=== PATIENT | female | born 1935 | race Caucasian/White ===

== ENCOUNTER 2017-12-30 11:58 | Emergency (ER) | payer MEDICARE, BC ==
[2017-12-30 13:14] LABS: Bilirubin Negative (Negative); Blood, Urine Negative (Negative); Clarity Clear (Clear); Glucose, Urine (Dipstick) Negative (Negative); Leukocyte Negative (Negative); Nitrite Negative (Negative); Protein, Urine (Dipstick) Negative (Neg-Trace); Urobilinogen 0.2 mg/dL (0.2-1.0)
[2017-12-30 13:17] LABS: #Basophils 0.1 thou/uL (0.0-0.2); #Lymphocytes 1.2 thou/uL (1.20-3.40); #Monocytes 0.5 thou/uL (0.11-0.59); #Neutrophils 6.3 thou/uL (1.40-6.50); %Basophils 0.9 % (0.0-1.0); %Eosinophils 0.5 % (0.0-10.0); %Monocytes 5.6 % (0.0-10.0); Hemoglobin 13.7 g/dL (12.0-16.0); Mean Corpuscular HGB CONC 33.4 g/dL (32.0-36.0); Mean Corpuscular Hemoglobin 30.1 pg (27.0-31.0); Mean Corpuscular Volume 90.4 fl (81.0-99.0); Mean Platelet Volume 5.9 fL (7.4-10.4); Platelet Count 375 thou/uL (130-400); RBC Distribution Width 12.7 % (11.5-14.5); Red Blood Cell (RBC) Count 4.54 mill/uL (4.20-5.40); White Blood Cell (WBC) Count 8.1 thou/uL (4.8-10.8)
[2017-12-30 13:30] LABS: ALT (SGPT) 17 U/L (8-55); AST (SGOT) 22 U/L (5-34); Albumin 4.4 g/dL (3.4-4.8); Alkaline Phosphatase 65 U/L (40-150); Anion Gap 16 mmol/L (10-20); BUN (Urea Nitrogen) 9 mg/dL (9.8-20.1); Bilirubin, Total 0.5 mg/dL (0.2-1.2); Calc. Creatinine Clearance 0 mL/min (70-130); Calcium 9.8 mg/dL (7.8-10.44); Carbon Dioxide 28 mmol/L (23-31); Chloride 98 mmol/L (98-107); Estimated GFR-MDRD 77; Globulin 3.2 g/dL (2.4-3.5); Glucose 108 mg/dL (83-110); Potassium 4.1 mmol/L (3.5-5.1); Protein, Total 7.6 g/dL (6.0-8.3); Sodium 138 mmol/L (136-145)
== END 2017-12-30 14:02 | disposition home or self-care (01) ==
LOC: SCSER 11:58
DX: I10 Essential (primary) hypertension (principal); E78.5 Hyperlipidemia, unspecified; J44.9 Chronic obstructive pulmonary disease, unspecified; F32.9 Major depressive disorder, single episode, unspecified; Z87.891 Personal history of nicotine dependence; Z79.899 Other long term (current) drug therapy
CPT/HCPCS: 80053; 81003; 85025; 99283

== ENCOUNTER 2018-01-09 09:25 | Inpatient (IN) | payer MEDICARE, BC ==
[2018-01-09 10:31] LABS: #Lymphocytes 0.9 thou/uL (1.20-3.40); #Monocytes 0.6 thou/uL (0.11-0.59); #Neutrophils 8.9 thou/uL (1.40-6.50); %Basophils 0.3 % (0.0-1.0); %Eosinophils 0.2 % (0.0-10.0); %Lymphocytes 8.4 % (21.0-51.0); %Neutrophils 85.1 % (42.0-75.0); Hemoglobin 13.3 g/dL (12.0-16.0); Mean Corpuscular HGB CONC 33.4 g/dL (32.0-36.0); Mean Corpuscular Hemoglobin 31.7 pg (27.0-31.0); Mean Corpuscular Volume 94.7 fl (81.0-99.0); Mean Platelet Volume 6.7 fL (7.4-10.4); Platelet Count 322 thou/uL (130-400); RBC Distribution Width 13.2 % (11.5-14.5); Red Blood Cell (RBC) Count 4.19 mill/uL (4.20-5.40); White Blood Cell (WBC) Count 10.5 thou/uL (4.8-10.8)
--- NOTE | 2018-01-09 10:49 | RAD ---
SINGLE VIEW OF THE CHEST: COMPARISON: 03/10/13. HISTORY: Burning chest pain. FINDINGS: A single view of the chest shows a normal-size cardiomediastinal silhouette with atherosclerotic calc ifications in the aorta. There is no evidence of consolidation, mass, or pleural effusion. Degenera tive changes are seen in the spine. IMPRESSION: 1. No evidence of acute cardiopulmonary disease. 2. Atherosclerotic disease. POS: [facility]
[2018-01-09 10:54] LABS: ALT (SGPT) 17 U/L (8-55); AST (SGOT) 20 U/L (5-34); Albumin 4.1 g/dL (3.4-4.8); Alkaline Phosphatase 58 U/L (40-150); Anion Gap 12 mmol/L (10-20); BUN (Urea Nitrogen) 13 mg/dL (9.8-20.1); Bilirubin, Total 0.4 mg/dL (0.2-1.2); CK (CPK) 84 U/L (29-168); Calc. Creatinine Clearance 0 mL/min (70-130); Calcium 9.2 mg/dL (7.8-10.44); Carbon Dioxide 29 mmol/L (23-31); Chloride 90 mmol/L (98-107); Estimated GFR-MDRD 81; Globulin 2.7 g/dL (2.4-3.5); Glucose 138 mg/dL (83-110); Lipase 33 U/L (8-78); Protein, Total 6.8 g/dL (6.0-8.3); Sodium 127 mmol/L (136-145)
[2018-01-09 10:57] LABS: CKMB 3.1 ng/mL (0-6.6); Troponin I Less than 0.010 ng/mL (< 0.028)
[2018-01-09] MEDS ORDERED: Mag-Al 1200 mg/1200 mg/30 ML UDCUP ONE (11:11)
[2018-01-09] MEDS ORDERED: Lidocaine Viscous Sol 2% 15 ml UD Cup ONE (11:11)
[2018-01-09] MEDS ORDERED: Famotidine 20 MG TAB ONE (11:27)
[2018-01-09] MEDS ORDERED: Famotidine 20 MG TAB PO SCH (11:30)
[2018-01-09] MEDS ORDERED: Pantoprazole 40 MG VIAL ONE (12:59)
[2018-01-09 13:58] LABS: Troponin I 0.017 ng/mL (< 0.028)
[2018-01-09] MEDS ORDERED: Ondansetron ODT 4 MG TAB SL PRN (15:29)
[2018-01-09] MEDS ORDERED: Sodium Chloride 0.9% 1,000 ML IV SCH (15:29)
[2018-01-09] MEDS ORDERED: Ondansetron HCl/PF 4 MG/2 ML Vial IVP PRN (15:29)
[2018-01-09] MEDS ORDERED: Acetaminophen 325 MG TAB PO PRN (15:29)
[2018-01-09 16:01] VITALS: BMI 21.0
[2018-01-09] MEDS ORDERED: cloNIDine 0.1 MG TAB PO PRN ×2 (16:27→17:06)
[2018-01-09] MEDS ORDERED: PROVENTIL INHALER 6.7 G (200 INHALATIONS) INH PRN (16:27)
[2018-01-09 16:44] LABS: Troponin I 0.018 ng/mL (< 0.028)
--- NOTE | 2018-01-09 18:10 | HP ---
PRIMARY CARE PHYSICIAN: Darrell Scales M.D. CHIEF COMPLAINT: Epigastric pain. HISTORY OF PRESENT ILLNESS: This is an 82-year-old female patient of Dr. Scales with a history of hypertension, hyperlipidemia, COPD, hypothyroidism, uncontrolled gastroesophageal reflux disease presents to the emergency department with worsening epigastric pain and reflux symptoms. The patient states she has had these symptoms that had been getting worse over the past 1-2 weeks. She was seen by Dr. Scales little over a week ago who increased her omeprazole from 20 mg to 40 mg. She has had worsening symptoms since then and presented to the emergency department for evaluation. Of note, she does state that after eating [place] meatloaf with lots of tomato sauce, her symptoms did get worse. She denies chest pain, denies shortness of breath, denies radiation of her pain, denies nausea and vomiting, denies black tarry stools. She had no relief in the ER with p.o. Pepcid. PAST MEDICAL HISTORY: Hypertension, hyperlipidemia, COPD followed by Dr. Montes and Dr. Page, hypothyroidism, gastroesophageal reflux disease, followed by Dr. Jon, home oxygen and history of depression. PAST SURGICAL HISTORY: Hysterectomy in 1962, exploratory laparotomy in 1981, breast biopsy in 1988, vaginal surgery for ovarian cyst in 1994, she reports colonoscopy in 2010 and 2015. She had EGD in [address] Jon, was admitted for partial small-bowel obstruction in 2012. MEDICATIONS: Include citalopram 10 mg daily, omeprazole 40 mg daily, levothyroxine 50 mcg daily, Breo-Ellipta inhaler 1 puff daily, ProAir p.r.n., Spiriva 18 mcg once daily, amlodipine 5 mg daily, melatonin 3 mg at bedtime, losartan 50 mg b.i.d., vitamin C 1000 mg daily, clonidine 0.1 mg p.r.n. systolic over 180, multivitamin daily, calcium and vitamin D daily, and Zetia 10 mg daily. ALLERGIES: CEPHALEXIN, HYDROCHLOROTHIAZIDE, LEVOFLOXACIN, and SYMBICORT. FAMILY HISTORY: Mother and father . Mother with colon cancer. Siblings with diabetes and kidney disease. SOCIAL HISTORY: Former smoker, last smoked over 10 years ago. She is retired. She is , retired 12th grade. REVIEW OF SYSTEMS: As per the history of present illness. General: She denies any recent fevers, chills or recent illness. HEENT: She denies headache , visual or hearing changes. Cardiac: She denies chest pain, shortness of breath. Pulmonary: Chronic cough, chronic shortness of breath, occasional wheezing followed by Dr. Montes and Dr. Page. Gastrointestinal: Positive for chronic gastroesophageal reflux disease. No melena, no hematochezia. Positive epigastric tenderness, no nausea, vomiting, no diarrhea. Genitourinary: Recent urinary tract infection for which she was drinking lots of water. Neurologic: No weakness, seizures, syncope. PHYSICAL EXAMINATION: VITAL SIGNS: Temperature 97.8, pulse of 80, respirations 18, blood pressure 170 /97, pulse ox is 99% on 3 liters. GENERAL: She is awake and alert, in no acute distress. Speech is clear. Mucosa is moist. NECK: Supple, no JVD, adenopathy or bruits. HEART: Regular rate and rhythm with a 2/6 systolic ejection murmur. LUNGS: Decreased breath sounds throughout, but no wheezes, rales or rhonchi. ABDOMEN: Positive bowel sounds in all 4 quadrants. Some epigastric tenderness. No rebound or guarding. EXTREMITIES: No clubbing, cyanosis or edema. 2+ peripheral pulses bilaterally. NEUROLOGIC: Cranial nerves II-XII are grossly intact. LABORATORY AND X-RAY FINDINGS: White blood cell count 10.5 thousand, hemoglobin and hematocrit 13.3 and 39.7, platelets 322. Sodium 127, potassium 4.0, chloride 90, CO2 of 29, BUN and creatinine 13.69 with a GFR of 81. Serum glucose of 138, calcium of 9.2. Magnesium 1.9. Liver enzymes are normal with AST and ALT being normal. Total bilirubin was normal. Cardiac enzymes are negative x2. Albumin of 4.1, lipase of 33. Chest x-ray showed no active disease. Positive for atherosclerotic disease. ASSESSMENT AND PLAN: This is an 82-year-old female patient with multiple medical problems including hypertension, hyperlipidemia, chronic obstructive pulmonary disease, and uncontrolled gastroesophageal reflux disease, now with epigastric pain and burning consistent with gastroesophageal reflux disease. 1. We will discontinue proton pump inhibitor and start IV Pepcid twice a day. We will start Carafate for more immediate relief with her meals. Will check an abdominal US to rule out gallbladder disease 2. Chronic obstructive pulmonary disease. We will continue her inhalers, monitor her pulse oximetry. 3. Hypertension. We will continue losartan, amlodipine and p.r.n. clonidine. 4. Hyponatremia, likely secondary to excessive water intake to treat her recent bladder infection. We will fluid restrict and recheck in the morning. 5. We will continue rule out myocardial infarction protocol, but no signs of cardiac origin of her symptoms. 6. Code status: The patient desires DNR. MTDD
[2018-01-09] MEDS: Sucralfate 1 GM TAB PO SCH ×2 (18:23→21:10)
[2018-01-09] MEDS: Ipratropium Bromide 2.5 ml Neb NEB SCH (19:55)
[2018-01-09] MEDS ORDERED: Famotidine/PF 20 mg/2ml Vial SLOW IVP SCH (21:00)
[2018-01-09] MEDS: Melatonin 3 MG TAB PO SCH (21:08)
[2018-01-09] MEDS: Losartan 25 MG TAB PO SCH (21:08)
[2018-01-09] MEDS: Ezetimibe 10 MG TAB PO SCH (21:09)
[2018-01-10] MEDS: Ipratropium Bromide 2.5 ml Neb NEB SCH ×3 (01:50→15:31)
[2018-01-10 05:47] LABS: #Eosinphils 0.2 thou/uL (0.0-0.7); #Lymphocytes 1.4 thou/uL (1.20-3.40); #Monocytes 0.6 thou/uL (0.11-0.59); %Basophils 0.5 % (0.0-1.0); %Eosinophils 2.9 % (0.0-10.0); %Lymphocytes 26.6 % (21.0-51.0); %Monocytes 11.4 % (0.0-10.0); %Neutrophils 58.6 % (42.0-75.0); Hemoglobin 11.1 g/dL (12.0-16.0); Mean Corpuscular HGB CONC 32.1 g/dL (32.0-36.0); Mean Corpuscular Volume 96.6 fl (81.0-99.0); Mean Platelet Volume 6.6 fL (7.4-10.4); Platelet Count 291 thou/uL (130-400); RBC Distribution Width 13.2 % (11.5-14.5); Red Blood Cell (RBC) Count 3.59 mill/uL (4.20-5.40); White Blood Cell (WBC) Count 5.2 thou/uL (4.8-10.8)
[2018-01-10 06:17] LABS: ALT (SGPT) 14 U/L (8-55); AST (SGOT) 16 U/L (5-34); Albumin 3.3 g/dL (3.4-4.8); Alkaline Phosphatase 45 U/L (40-150); Anion Gap 8 mmol/L (10-20); BUN (Urea Nitrogen) 14 mg/dL (9.8-20.1); Bilirubin, Total 0.4 mg/dL (0.2-1.2); Calc. Creatinine Clearance 45 mL/min (70-130); Calcium 8.8 mg/dL (7.8-10.44); Carbon Dioxide 31 mmol/L (23-31); Chloride 96 mmol/L (98-107); Estimated GFR-MDRD 74; Globulin 2.1 g/dL (2.4-3.5); Glucose 87 mg/dL (83-110); Potassium 4.5 mmol/L (3.5-5.1); Protein, Total 5.4 g/dL (6.0-8.3); Sodium 130 mmol/L (136-145)
[2018-01-10] MEDS ORDERED: FLUTICASONE INH SCH (07:00)
[2018-01-10] MEDS ORDERED: VILANTEROL INH SCH (07:00)
[2018-01-10] MEDS: Levothyroxine Sodium 50 MCG TAB PO SCH (07:04)
[2018-01-10] MEDS: Sucralfate 1 GM TAB PO SCH ×4 (07:45→20:38)
--- NOTE | 2018-01-10 08:49 | ULT ---
ULTRASOUND ABDOMEN COMPLETE: DATE: 01/10/18. TIME: 6:35 a.m. HISTORY: An 82-year-old female with epigastric abdominal pain. FINDINGS: Liver: Normal. Gallbladder: A large number of tiny mobile gallstones. Normal wall thickness. No pericholecystic ed celina or sonographic Willson's sign. Common duct: 5 mm. Spleen: No splenomegaly. Pancreas: Nonspecific sonographic appearance. Kidneys: A few small bilateral renal cysts. No hydronephrosis. Abdominal aorta: No aneurysm. Inferior vena cava: Unremarkable. IMPRESSION: Positive for cholelithiasis without sonographic evidence of acute cholecystitis or biliary obstructio n. JN R POS: OFF
[2018-01-10] MEDS: Losartan 25 MG TAB PO SCH ×2 (08:50→20:38)
[2018-01-10] MEDS: Citalopram 10 MG TAB PO SCH (08:52)
[2018-01-10] MEDS: Amlodipine 10 MG TAB PO SCH (08:53)
[2018-01-10] MEDS: Famotidine 20 MG TAB PO SCH ×2 (08:54→20:37)
[2018-01-10] MEDS: Multivit, Therapeutic 1 TAB PO SCH (08:54)
[2018-01-10] MEDS: Calcium Carbonate + Vit D 1 TAB PO SCH (08:54)
[2018-01-10] MEDS: Ascorbic Acid 500 mg Chewable Tablet PO SCH (08:55)
[2018-01-10] MEDS ORDERED: Amlodipine 5 MG TAB PO SCH (09:00)
--- NOTE | 2018-01-10 09:12 | PRG ---
DATE OF SERVICE: 01/10/2018 HISTORY OF PRESENT ILLNESS: The patient has been tolerating fluid restriction. The nursing staff bobo s only been bringing the patient Gatorades in addition to this 1500 mL restriction. She has had a hi story of hypernatremia prior, but this was felt to be secondary to her diuretic. The patient has had an increased fluid intake following a UTI in the last month and has been eating significantly less s econdary to her GERD. She reports that with current medications her acid reflux is in improved contr ol. She still reports she feels a generalized sense of weakness. She is on p.r.n. oxygen at home fo r her COPD and respiratory therapy is reporting a desire to titrate down from 3 liters nasal cannula at this point in time. The patient had no additional complaints, still reports anxiety and depressiv e symptoms regarding the living situation and long-term outlook, not interested currently in assisted living per the patient's desire. PHYSICAL EXAMINATION: VITAL SIGNS: Temperature of 98.2, blood pressure of 189/87, pulse of 76, respiratory rate of 18, oxy gen saturation 99% on 3 liters nasal cannula. GENERAL: The patient is alert and oriented in no acute distress. HEENT: Head is normocephalic, atraumatic. Extraocular movements are intact. Nasal cannula is in pl jena. Oral mucosa is moist. NECK: Supple. HEART: Regular rate and rhythm. No murmurs are auscultated. LUNGS: With poor air movement, but no rubs, wheezes, rhonchi, or rales bilaterally. ABDOMEN: Soft, nontender. Mild epigastric tenderness. EXTREMITIES: Lower extremities without cyanosis or edema. NEUROLOGIC: The patient is alert and oriented x3, no focal deficits. Speech is normal. The patient reports depressed mood and anxiety. LABORATORY DATA: Sodium improved from 127 to 130, potassium of 4.5, chloride of 96, creatinine 0.75, blood glucose of 87, calcium of 8.8, total bilirubin of 0.4, AST of 16, ALT of 14. Troponins x3 are negative. Albumin of 3.3. Lipase of 33 on admission. Abdomen ultrasound performed, however, not r ead yet. Chest x-ray was clear. ASSESSMENT AND PLAN: Hyponatremia, gastroesophageal reflux disease with esophagitis, hypoalbuminemia, chronic obstructive pulmonary disease, hypertension, chest pain, rule out myocardial infarction, depression. Continuing on fluid restriction, following up on urine osmolarity and sodiu m. We will trend sodium while the patient is inpatient, currently improving with fluid restriction. Gastroesophageal reflux disease with esophagitis, the patient improved with H2 olimpia, proton pump inhibitor, and Carafate. We will continue this for this point in time, no sources of blood noted. T he patient does have signs of anemia of chronic disease following volume normalization. Hypoalbumine roldan, the patient is normally taking Ensure protein shakes once a day. Has had poor appetite secondar y to gastroesophageal reflux disease as above for the last month or so. On an outpatient basis, we w ill increase protein shakes from daily to b.i.d. to t.i.d. Chronic obstructive pulmonary disease, co ntinuing p.r.n. oxygen and breathing treatments. The patient appears currently medically stable, has p.r.n. oxygen at home. Hypertension remains somewhat elevated, initiated p.r.n. clonidine on an out patient basis, likely will increase the patient's amlodipine, continue the patient's losartan. Chest pain, rule out myocardial infarction. Troponins x3 negative. The patient without chest pain this a .m. does not appear to be cardiac in nature. No further workup at this time unless chest pain return s. Depression, the patient was initiated on SSRI on an outpatient basis, low dose; however, she has only been on this medication for approximately one week. Currently, continued on citalopram, not a l ikely cause of hyponatremia, but we will continue to follow. We will continue to discuss with the jarrett jerez her long-term outcomes versus assisted living versus renovating home per her wishes, but at thi s point in time, the patient is likely appropriate for discharge home. We will have the patient up w ith the walking program today.
[2018-01-10] MEDS ORDERED: Ipratropium Bromide 2.5 ml Neb NEB PRN (14:05)
[2018-01-10 14:13] LABS: Osmolality, Urine 344 mOsm/kg (300-900)
[2018-01-10 14:23] LABS: Sodium, Urine 81 mmol/L (Not Available)
[2018-01-10] MEDS: Melatonin 3 MG TAB PO SCH (20:38)
[2018-01-10] MEDS: Ezetimibe 10 MG TAB PO SCH (20:39)
[2018-01-11] MEDS: Levothyroxine Sodium 50 MCG TAB PO SCH (05:39)
[2018-01-11 05:50] LABS: Anion Gap 6 mmol/L (10-20); BUN (Urea Nitrogen) 12 mg/dL (9.8-20.1); Calc. Creatinine Clearance 51 mL/min (70-130); Calcium 8.9 mg/dL (7.8-10.44); Carbon Dioxide 36 mmol/L (23-31); Chloride 92 mmol/L (98-107); Estimated GFR-MDRD 86; Glucose 89 mg/dL (83-110); Potassium 3.9 mmol/L (3.5-5.1); Sodium 130 mmol/L (136-145)
[2018-01-11] MEDS ORDERED: Sodium Chloride 0.9% 10 ML ONE (08:15)
[2018-01-11] MEDS: Ascorbic Acid 500 mg Chewable Tablet PO SCH (09:42)
[2018-01-11] MEDS: Sucralfate 1 GM TAB PO SCH ×4 (09:42→20:28)
[2018-01-11] MEDS: Amlodipine 10 MG TAB PO SCH (09:43)
[2018-01-11] MEDS: Famotidine 20 MG TAB PO SCH (09:43)
[2018-01-11] MEDS: Citalopram 10 MG TAB PO SCH (09:44)
[2018-01-11] MEDS: Calcium Carbonate + Vit D 1 TAB PO SCH (09:45)
[2018-01-11] MEDS: Losartan 25 MG TAB PO SCH ×2 (09:45→20:29)
[2018-01-11] MEDS: Multivit, Therapeutic 1 TAB PO SCH (09:45)
[2018-01-11 14:27] LABS: Anion Gap 9 mmol/L (10-20); BUN (Urea Nitrogen) 10 mg/dL (9.8-20.1); Calc. Creatinine Clearance 53 mL/min (70-130); Calcium 9.4 mg/dL (7.8-10.44); Carbon Dioxide 32 mmol/L (23-31); Chloride 92 mmol/L (98-107); Estimated GFR-MDRD 89; Glucose 110 mg/dL (83-110); Sodium 129 mmol/L (136-145)
--- NOTE | 2018-01-11 14:41 | PRG ---
DATE OF SERVICE: 01/11/2018 HISTORY OF PRESENT ILLNESS: The patient states she has no new complaints. Nursing staff reports she wanting to take her Spiriva rather than scheduled breathing treatments. The patient verbalized unde rstanding regarding fluid restrictions at this point in time following up additional studies for hypo natremia. The patient still reports weakness. She refused to walk with walking program yesterday, b ut states she will do so. Today as she did not know that they would use a walker with her as request ed. The patient states that her acid reflux symptoms are controlled. She reports she had a spike in blood pressure this a.m. without any symptoms. PHYSICAL EXAMINATION: VITAL SIGNS: This a.m., temperature 98.3, pulse of 67, respiratory rate of 16, oxygen saturation 100 % on 3 liters nasal cannula, blood pressure 140/80. GENERAL: The patient is alert and oriented, no acute distress. HEENT: Normocephalic, atraumatic. Extraocular muscles are intact. Oral mucosa is moist. NECK: Supple. Nasal cannula in place. HEART: Regular rate and rhythm. No murmurs auscultated. LUNGS: Clear to auscultation bilaterally. No wheezes, rhonchi or rales. ABDOMEN: Soft, nontender, positive bowel sounds throughout. EXTREMITIES: Lower extremities without cyanosis or edema. NEUROLOGIC: The patient is alert and oriented x3, no focal deficits. Speech is normal. Urine osmolality of 344. Urine sodium 81. Serum sodium of 130. TSH of 1.99. Stool guaiac is pendi ng. ASSESSMENT AND PLAN: Gastroesophageal reflux disease with esophagitis, hyponatremia, chronic obstruc tive pulmonary disease, hypertension. Continuing fluid restriction this point in time. The patient receiving jittery products. Sodium has increased 3 points and then leveled off. We will follow up cortisol level and serum osmolality for possible causes of low adrenal production versus hypothyroidism; however, thyroid is in acceptable ra nges. She has reported to be semi-compliant with current dose of thyroid may increase slightly and m onitor on outpatient basis. We will order physical therapy consultation and the patient does not wal k with a walking program to ensure the patient's safety returning home. I have ordered protein shake s for low albumin and found a decreased appetite, slightly better blood pressure profile with amlodip ine remains labile as p.r.n. clonidine ordered. No reported symptoms with spike in blood pressure th is a.m. to 180s. The patient has improved without use of clonidine this a.m. The patient is tolerat ing Pepcid, Protonix, and Carafate at this point in time. I plan to discharge on these if the patien t produces stool. We will check for blood, which has not done so. Likely discharge tomorrow followi ng laboratory studies and if she is able to walk.
[2018-01-11] MEDS ORDERED: Tolvaptan 15 MG TAB PO SCH (18:00)
[2018-01-11] MEDS: Ezetimibe 10 MG TAB PO SCH (20:27)
[2018-01-11] MEDS: Melatonin 3 MG TAB PO SCH (20:28)
[2018-01-12] MEDS: Levothyroxine Sodium 50 MCG TAB PO SCH (06:04)
[2018-01-12 06:29] LABS: ALT (SGPT) 13 U/L (8-55); AST (SGOT) 15 U/L (5-34); Albumin 3.7 g/dL (3.4-4.8); Alkaline Phosphatase 52 U/L (40-150); Anion Gap 10 mmol/L (10-20); BUN (Urea Nitrogen) 15 mg/dL (9.8-20.1); Bilirubin, Total 0.3 mg/dL (0.2-1.2); Calc. Creatinine Clearance 48 mL/min (70-130); Calcium 9.5 mg/dL (7.8-10.44); Carbon Dioxide 37 mmol/L (23-31); Chloride 95 mmol/L (98-107); Estimated GFR-MDRD 80; Globulin 2.5 g/dL (2.4-3.5); Glucose 108 mg/dL (83-110); Potassium 4.5 mmol/L (3.5-5.1); Protein, Total 6.2 g/dL (6.0-8.3); Sodium 137 mmol/L (136-145)
[2018-01-12] MEDS ORDERED: SPIRIVA INH SCH (07:00)
[2018-01-12] MEDS: Sucralfate 1 GM TAB PO SCH ×3 (08:04→16:52)
[2018-01-12] MEDS ORDERED: Tolvaptan 15 MG TAB PO SCH (09:00)
[2018-01-12] MEDS ORDERED: Famotidine 20 MG TAB PO SCH (09:00)
[2018-01-12] MEDS: Losartan 25 MG TAB PO SCH (09:54)
[2018-01-12] MEDS: Multivit, Therapeutic 1 TAB PO SCH (09:54)
[2018-01-12] MEDS: Amlodipine 10 MG TAB PO SCH (09:56)
[2018-01-12] MEDS: Ascorbic Acid 500 mg Chewable Tablet PO SCH (09:58)
[2018-01-12] MEDS: Calcium Carbonate + Vit D 1 TAB PO SCH (09:58)
[2018-01-12] MEDS: Citalopram 10 MG TAB PO SCH (09:58)
[2018-01-12 15:33] VITALS: BP 143/73; TEMP 98.8
--- NOTE | 2018-01-13 13:51 | DIS ---
DATE OF ADMISSION: 01/09/2018 DATE OF DISCHARGE: 01/12/2018 PRIMARY CARE PHYSICIAN: Myself, Dr. Darrell Scales. ADMITTING PHYSICIAN: Clint Montoya D.O. DIAGNOSES: Include hyponatremia; gastroesophageal reflux disease with esophagitis; hypoalbuminemia; chronic obstructive pulmonary disease; hypertension; chest pain, rule out myocardial infarction; recu rrent depression; and syndrome of inappropriate antidiuretic hormone secretion. CHIEF COMPLAINT: Chest pain and weakness. PRESENTING HISTORY OF PRESENT ILLNESS: The patient presented to the emergency department secondary t o chest pain. She reports this feels much like her acid reflux. Troponins x3 were negative. The pa solitario had a history of hyponatremia, on prior hydrochlorothiazide; however, was discontinued, found t o have sodiums ranging down to 127. The patient did not improve with fluid restriction. 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 The patient was treated with a dose of tolva ptan with resolution of her hyponatremia. The patient was on increased Carafate and PPI as addition to H2 olimpia for chest pain control. The patient has been resistant to start depression medications ; however, is compliant for less than one week on an outpatient basis prior to her admission. She re ports great anxiety about her health condition, does not want to go to assisted living, but know she cannot remain living by herself for much longer. When discussed, she had a constricted right pupil g iven findings of SIADH. The patient declined MRI of the brain and states that she if has a brain evy or, she does not want to know about it and does not want to do anything about it. Her code status bobo s been DNR/DNI since admission. She states she will follow up with Dr. Pringle on an outpatient basi s regarding her vision. She denies any visual changes, double vision, still remains overall weak, wa s using protein supplementation shakes once a day, verbalized understanding about increasing that to help with hyperalbuminemia as well as energy. DISCHARGE MEDICATIONS: Increase amlodipine to 10 mg, continue p.r.n. clonidine 0.1 mg. NEW MEDICATIONS: Pepcid 20 mg b.i.d., Carafate 1 gram q.i.d., tolvaptan 15 mg daily. Continue other home medications, otherwise. DISCHARGE CONDITION: Good. DISCHARGE DIET: Heart healthy. FOLLOWUP: Follow up with myself, Dr. Darrell Scales, on an outpatient basis in 7 to 10 days. We wi ll recheck sodium at that point in time and blood pressure. Follow up with Dr. Pringle for repeat ex am.
--- NOTE | 2018-01-15 18:04 | EKG ---
Test Reason : Blood Pressure : / mmHG Vent. Rate : 085 BPM Atrial Rate : 085 BPM P-R Int : 144 ms QRS Dur : 138 ms QT Int : 388 ms P-R-T Axes : 079 -46 026 degrees QTc Int : 461 ms Normal sinus rhythm Left axis deviation Right bundle branch block Minimal voltage criteria for LVH, may be normal variant Septal infarct , age undetermined Abnormal ECG Confirmed by VICENTE CARROLL, BAKARI ([id number]), film editor YURI BATES ([id number]) on 01/15/2018 6:03:30 PM Referred By: Confirmed By:BAKARI ZHANG MD
== END 2018-01-12 17:06 | disposition home health service (06) | DRG 392 ==
LOC: ERS 09:25 → 2NO 15:36 → ONC 01-11 16:05
PROVIDERS: ADMIT Family Medicine; ATTEND Family Medicine
DX: K21.0 Gastro-esophageal reflux disease with esophagitis (principal); E88.09 Other disorders of plasma-protein metabolism, not elsewhere classified; Z99.81 Dependence on supplemental oxygen; E22.2 Syndrome of inappropriate secretion of antidiuretic hormone; J44.9 Chronic obstructive pulmonary disease, unspecified; D63.8 Anemia in other chronic diseases classified elsewhere; I10 Essential (primary) hypertension; E78.5 Hyperlipidemia, unspecified; E03.9 Hypothyroidism, unspecified; F32.9 Major depressive disorder, single episode, unspecified; Z79.51 Long term (current) use of inhaled steroids; Z88.8 Allergy status to other drugs, medicaments and biological substances; Z87.891 Personal history of nicotine dependence; Z66 Do not resuscitate; F41.9 Anxiety disorder, unspecified
CPT/HCPCS: 36415; 71045; 76700; 80048; 80053; 82150; 82274; 82533; 82550; 82553; 83690; 83735; 83930; 83935; 84300; 84443; 84484; 85025; 93005; 94640; 94760; 96361; 96374; A4216; C9113; G8978-GP-CK; G8979-GP-CK; G8980-GP-CK; J7644; S0028

== ENCOUNTER 2020-08-25 17:21 | Inpatient (IN) | payer MEDICARE, BC ==
[2020-08-25 17:54] LABS: Hemoglobin 13.2 g/dL (12.0-16.0); Mean Corpuscular HGB CONC 33.1 g/dL (32.0-36.0); Mean Corpuscular Hemoglobin 32.3 pg (27.0-31.0); Mean Corpuscular Volume 97.5 fL (78.0-98.0); Mean Platelet Volume 6.9 fL (7.4-10.4); Platelet Count 332 thou/uL (130-400); RBC Distribution Width 12.5 % (11.5-14.5); White Blood Cell (WBC) Count 10.1 thou/uL (4.8-10.8)
[2020-08-25 18:07] LABS: Band 2 % (5-11); Lymphocytes 13 % (21-51); MDiff Complete? YES; Monocytes 9 % (0-10); Neutrophil 76 % (42-75); Platelet Morphology Comment Appears Adequate; RBC Morphology Normal
[2020-08-25 18:14] LABS: ALT (SGPT) 20 U/L (8-55); AST (SGOT) 33 U/L (5-34); Albumin 4.2 g/dL (3.4-4.8); Alkaline Phosphatase 67 U/L (40-110); Anion Gap 15 mmol/L (10-20); BUN (Urea Nitrogen) 9 mg/dL (9.8-20.1); Bilirubin, Total 0.5 mg/dL (0.2-1.2); Calc. Creatinine Clearance 0 mL/min (70-130); Calcium 8.8 mg/dL (7.8-10.44); Carbon Dioxide 29 mmol/L (23-31); Chloride 94 mmol/L (98-107); Estimated GFR-MDRD 80; Globulin 3.1 g/dL (2.4-3.5); Glucose 151 mg/dL (83-110); Potassium 3.9 mmol/L (3.5-5.1); Protein, Total 7.3 g/dL (6.0-8.3); Sodium 134 mmol/L (136-145)
[2020-08-25 18:27] LABS: Analyzer IN Cardio ER; Base Excess (BEa) 3.6 mEq/L (-2.0 to +3.0); Calcium, Ionized (arterial) 1.21 mmol/L (1.12-1.30); Carboxyhemoglobin (COHb) 0.5 gm% (0.0-3.0); Hemoglobin (Hb) 13.4 g/dL (12.0-16.0); Potassium - ABG Lab 4.07 mmol/L (3.70-5.30)
[2020-08-25 18:30] LABS: CO2 Tension 84.2 mmHg (35.0-45.0); pH, Arterial 7.22 (7.35-7.45)
[2020-08-25 18:32] LABS: Puncture Site L RADIAL
--- NOTE | 2020-08-25 18:51 | RAD ---
PORTABLE CHEST: History: Dyspnea Comparison: Two view chest, 06-27-2020 FINDINGS: Changes of COPD again noted with hyperexpansion and flattened diaphragms. There is evidence of a small left pneumothorax with evidence of a pleural line seen in the left apex and the left lower lung. No infiltrate or vascular congestion. Possibility of an associated atelectasis in the left lung base. Aortic calcification. IMPRESSION: 1. Small left pneumothorax. 2. Changes of COPD again noted. Findings relayed to the Emergency Department at the time of dictation. POS: [facility]
[2020-08-25 18:53] LABS: CKMB 7.7 ng/mL (0-6.6)
[2020-08-25 19:01] LABS: SARS-CoV-2 NAA Rapid Test Not Detected (NotDetected)
[2020-08-25] MEDS ORDERED: Aspirin Chewable 81 MG TAB ONE (20:01)
[2020-08-25] MEDS ORDERED: cefTRIAXone\\ROCEPHIN 2 GM VIAL ONE (20:01)
--- NOTE | 2020-08-25 20:41 | CT ---
CTA CHEST WITH CONTRAST: Axial tomograms were obtained following angio protocol with multiplanar reconstruction and 3D post pr ocessing. Indications: Dyspnea, COPD. Earlier chest x-ray showed evidence of a left pneumothorax. FINDINGS: Pulmonary arteries show adequate opacification. There is no evidence of pulmonary embolus. Thoracic aorta shows atherosclerotic changes. No evidence of dissection. Review of the lung dumont does confirm the small left pneumothorax. Estimated in the 10-20% range. There is a nodular mass in the posterior left upper lobe abutting the fissure and also abutting the p osterior pleural surface. This measures 1.0 cm in the axial plane, but measures up to 2.0 cm in the s agittal plane. This could represent focal dense inflammatory consolidation although underlying neopla sm is primary concern. There is hazy ground glass infiltrate and/or chronic lung change in the peripheral right lower lobe w ith nonspecific nodularity associated with this parenchymal opacity. There are chronic lung changes consistent with history of COPD. There is central lobular emphysematou s change. Mediastinum is otherwise unremarkable. IMPRESSION: 1. No evidence of pulmonary embolus. 2. Left pneumothorax as described above. 3. A pleural based opacity in posterior left upper lobe abutting the pleural surface. This will need to be followed. 3. Nonspecific ground glass infiltrate or chronic change in the peripheral right lower lobe abutting the pleural surface. This area could also be followed with follow up exams. Findings were discussed with Dr. Allen and follow up can be performed after antibiotic treatment to re-assess these pulmonary findings. POS: [facility]
[2020-08-25] MEDS ORDERED: Azithromycin 500 MG VIAL ONE (20:49)
[2020-08-25] MEDS ORDERED: Electrolyte Replacement Protoc 1 EACH EACH IVPB PRN (20:55)
--- NOTE | 2020-08-25 20:55 | PDOC.HHP ---
Hospitalist HPI - History of Present Illness Shortness of breath History of Present Illness: 84-year-old woman with a history of COPD, chronic respiratory failure on home O2, hyperlipidemia hypertension presented to the emergency department with a complaint of progressive shortness of breath over the past couple of days. Patient used her nebulizers at home without much improvement. She stated her oxygen saturation was as low as 70% on room air yesterday. She called EMS who gave her nebulizer treatment, IV magnesium and IV Solu-Medrol. Patient's chest x-ray in the emergency department demonstrated spontaneous right apical pneumothorax. CTA thorax done in the ED was negative for pulmonary embolism but demonstrated 10 to 15% pneumothorax on the right. Patient given breathing treatment, IV Rocephin and Zithromax and placed on oxygen therapy. She is admitted for further management. Hospitalist ROS - Review of Systems Other: Patient denied any fever. She endorsed nonproductive cough. She denied any abdominal pain or diarrhea.. Except as documented, all other systems reviewed and negative. - Medication Medications: Medication Instructions Recorded Confirmed Type Albuterol Sulfate [Proair HFA] 2 puff INH Q4HR PRN 08/11/16 08/26/20 History Calcium Carbonate/Vitamin D3 1 tablet PO DAILY 08/11/16 08/26/20 History [Calcium 600 with Vitamin D] Ezetimibe [Zetia] 10 mg PO HS 08/11/16 08/26/20 History Losartan Potassium 50 mg PO BID 08/11/16 08/26/20 History Melatonin 3 mg PO HS 08/11/16 08/26/20 History Multivitamin [Multi-Vitamin Daily] 1 tablet PO DAILY 08/11/16 08/26/20 History Omeprazole 40 mg PO DAILY 08/11/16 08/26/20 History Tiotropium [Spiriva Handihaler] 18 mcg INH DAILY 08/11/16 08/26/20 History Ascorbic Acid [Vitamin C] 1,000 mg PO DAILY 01/09/18 08/26/20 History Fluticasone/Vilanterol [Breo 1 puff INH DAILY 01/09/18 08/26/20 History Ellipta] Levothyroxine Sodium 50 mcg PO DAILY 01/09/18 08/26/20 History Polyethylene Glycol 3350 [Miralax] 17 gm PO DAILY PRN 01/11/18 08/26/20 History Amlodipine [Norvasc] 5 mg PO DAILY #30 tab 01/12/18 08/26/20 Rx Hospitalist History - Past Medical History Cardiac: reports: HTN, Hyperlipidemia Pulmonary: reports: COPD Gastrointestinal: reports: GERD Endocrine: reports: Hypothyroidism - Past Surgical History Past Surgical History: reports: Breast Biopsy, Hysterectomy, Other (Laparotomy, vagina surgery for ovarian cyst, colonoscopy, EGD) - Family History Family History: reports: cancer (Mother had colon cancer) - Social History Smoking Status: Former smoker Alcohol: reports: None Drugs: reports: none Living Situation: Alone - Exam General - other findings: Mild respiratory distress, cachectic and frail- appearing Eye: PERRL ENT: normocephalic atraumatic, no oropharyngeal lesions, moist mucosa Neck: supple, symmetric, no JVD Heart: RRR, no murmur, no gallops Respiratory: no wheezes, no rales Respiratory - other findings: Diffuse diminished breath sounds, worse on the right. Gastrointestinal: soft, non-tender, non-distended, normal bowel sounds Extremities: no cyanosis, no edema Skin: normal turgor, no rashes Neurological: cranial nerve grossly intact, no weakness, no focal deficits Musculoskeletal: normal tone, normal strength Psychiatric: normal affect, A&O x 3 Hospitalist Results - Labs Result Diagrams: 08/26/20 01:48 08/26/20 01:48 Lab results: WBC 10.1 thou/uL (4.8-10.8) 08/25/20 17:39 Hgb 13.2 g/dL (12.0-16.0) 08/25/20 17:39 Hct 39.9 % (36.0-47.0) 08/25/20 17:39 MCV 97.5 fL (78.0-98.0) 08/25/20 17:39 Plt Count 332 thou/uL (130-400) 08/25/20 17:39 Band Neuts % (Manual) 2 % (5-11) L 08/25/20 17:39 ABG pH 7.22 (7.35-7.45) L* 08/25/20 18:24 ABG pCO2 84.2 mmHg (35.0-45.0) H* 08/25/20 18:24 ABG pO2 122.0 mmHg (> 60.0) H 08/25/20 18:24 Sodium 134 mmol/L (136-145) L 08/25/20 17:39 Potassium 3.9 mmol/L (3.5-5.1) 08/25/20 17:39 Chloride 94 mmol/L (98-107) L 08/25/20 17:39 Carbon Dioxide 29 mmol/L (23-31) 08/25/20 17:39 BUN 9 mg/dL (9.8-20.1) L 08/25/20 17:39 Creatinine 0.70 mg/dL (0.6-1.1) 08/25/20 17:39 Glucose 151 mg/dL (83-110) H 08/25/20 17:39 Calcium 8.8 mg/dL (7.8-10.44) 08/25/20 17:39 Total Bilirubin 0.5 mg/dL (0.2-1.2) 08/25/20 17:39 AST 33 U/L (5-34) 08/25/20 17:39 ALT 20 U/L (8-55) 08/25/20 17:39 Alkaline Phosphatase 67 U/L (40-110) 08/25/20 17:39 CK-MB (CK-2) 7.7 ng/mL (0-6.6) H* 08/25/20 17:39 Troponin I 0.034 ng/mL (< 0.028) H 08/25/20 17:39 B-Natriuretic Peptide 269.8 pg/mL (0-100) H 08/25/20 17:39 Serum Total Protein 7.3 g/dL (6.0-8.3) 08/25/20 17:39 Albumin 4.2 g/dL (3.4-4.8) 08/25/20 17:39 - Radiology Interpretation Chest x-ray Status: report reviewed by me (Small left pneumothorax) CT scan - chest Status: report reviewed by me ( No evidence of pulmonary embolus Left pneumothorax. The pleural-based opacity in the posterior left upper lobe. Nonspecific groundglass infiltrates or chronic changes in the peripheral right lower lobe.) Hospitalist H&P A/P - Problem (1) COPD exacerbation Code(s): J44.1 - CHRONIC OBSTRUCTIVE PULMONARY DISEASE W (ACUTE) EXACERBATION Status: Acute (2) Acute on chronic respiratory failure with hypoxia and hypercapnia Code(s): J96.21 - ACUTE AND CHRONIC RESPIRATORY FAILURE WITH HYPOXIA; J96.22 - ACUTE AND CHRONIC RESPIRATORY FAILURE WITH HYPERCAPNIA Status: Acute (3) Spontaneous pneumothorax Code(s): J93.83 - OTHER PNEUMOTHORAX Status: Acute (4) HTN (hypertension) Code(s): I10 - ESSENTIAL (PRIMARY) HYPERTENSION Status: Chronic (5) Elevated troponin Code(s): R77.8 - OTHER SPECIFIED ABNORMALITIES OF PLASMA PROTEINS Status: Acute Assessment and Plan: Likely secondary to demand ischemia. - Plan Plan: Admit to ICU. High flow oxygen as needed Scheduled DuoNeb, IV Solu-Medrol. Will treat with IV antibiotics-vancomycin and Azactam. Allergies to cephalexin and levofloxacin acknowledged. Consult to pulmonary Serial chest x-ray to follow spontaneous pneumothorax. Patient confirmed DNR status. She is also reluctant for intubation. Trend troponin
[2020-08-25] MEDS ORDERED: Vancomycin 1 GM in Premix Bag 1 BAG IVPB SCH (21:00)
--- NOTE | 2020-08-25 21:22 | PDOC.FMACP ---
Advance Care Planning - Problem (1) COPD exacerbation Status: Acute Code(s): J44.1 - CHRONIC OBSTRUCTIVE PULMONARY DISEASE W (ACUTE) EXACERBATION (2) Acute on chronic respiratory failure with hypoxia and hypercapnia Status: Acute Code(s): J96.21 - ACUTE AND CHRONIC RESPIRATORY FAILURE WITH HYPOXIA; J96.22 - ACUTE AND CHRONIC RESPIRATORY FAILURE WITH HYPERCAPNIA (3) Spontaneous pneumothorax Status: Acute Code(s): J93.83 - OTHER PNEUMOTHORAX (4) HTN (hypertension) Status: Chronic Code(s): I10 - ESSENTIAL (PRIMARY) HYPERTENSION (5) Elevated troponin Status: Acute Code(s): R77.8 - OTHER SPECIFIED ABNORMALITIES OF PLASMA PROTEINS - Note Summary: Advanced Care Planning was discussed. The diagnosis, prognosis and goals of care were discussed. Appropriate forms and documentation to accomplish the goals of care were discussed. All questions were answered. The Palliative Care Team will be engaged to assist with completion of any outstanding forms that are needed. Patient wishes to be DNR and does not want to go through intubation and mechanical ventilation. Time Spent (mins): 18
[2020-08-25 21:44] LABS: Troponin I 0.038 ng/mL (< 0.028)
[2020-08-25] MEDS: methylPREDNISolone Sod Succ 40 MG VIAL IVP SCH (23:58)
[2020-08-25] MEDS ORDERED: Aztreonam 1 GM in Sodium Chloride 0.9% 100 ML IVPB SCH (23:59)
[2020-08-26] MEDS ORDERED: Vancomycin HCl 750 MG in Sodium Chloride 0.9% 250 ML 250 ML IVPB SCH (01:00)
[2020-08-26 01:58] LABS: #Lymphocytes 0.5 thou/uL (1.20-3.40); #Monocytes 0.1 thou/uL (0.11-0.59); #Neutrophils 6.7 thou/uL (1.40-6.50); %Lymphocytes 7.3 % (21.0-51.0); %Monocytes 0.8 % (0.0-10.0); %Neutrophils 91.9 % (42.0-75.0); Hemoglobin 12.6 g/dL (12.0-16.0); Mean Corpuscular HGB CONC 33.5 g/dL (32.0-36.0); Mean Corpuscular Hemoglobin 32.7 pg (27.0-31.0); Mean Corpuscular Volume 97.7 fL (78.0-98.0); Mean Platelet Volume 6.6 fL (7.4-10.4); Platelet Count 301 thou/uL (130-400); RBC Distribution Width 12.4 % (11.5-14.5); Red Blood Cell (RBC) Count 3.84 mill/uL (4.20-5.40); White Blood Cell (WBC) Count 7.2 thou/uL (4.8-10.8)
[2020-08-26 02:33] LABS: Troponin I 0.026 ng/mL (< 0.028)
[2020-08-26 02:37] LABS: Anion Gap 17 mmol/L (10-20); BUN (Urea Nitrogen) 9 mg/dL (9.8-20.1); Calc. Creatinine Clearance 44 mL/min (70-130); Calcium 8.7 mg/dL (7.8-10.44); Carbon Dioxide 23 mmol/L (23-31); Chloride 97 mmol/L (98-107); Estimated GFR-MDRD 84; Glucose 124 mg/dL (83-110); Potassium 5.1 mmol/L (3.5-5.1); Sodium 132 mmol/L (136-145)
[2020-08-26] MEDS: methylPREDNISolone Sod Succ 40 MG VIAL IVP SCH ×3 (06:03→18:28)
[2020-08-26] MEDS: Enoxaparin Sodium 30 MG/0.3 ML SYRINGE SC SCH (08:02)
[2020-08-26] MEDS: Famotidine/PF 20 mg/2ml Vial SLOW IVP SCH (08:02)
--- NOTE | 2020-08-26 11:07 | RAD ---
PORTABLE CHEST: Date: 08/26/2020 HISTORY: Follow-up pneumothorax. COMPARISON: Prior day's exam. FINDINGS: Chronic lung changes are seen. There still appears to be a very subtle small apical pneumothorax pres ent. There also is continued lucency in the costophrenic angle region which could represent loculated pneumothorax. IMPRESSION: Small left-sided pneumothorax, perhaps slight decreased in size as compared to the previous exam. POS: LUANNE
[2020-08-26] MEDS ORDERED: Albuterol Sulfate 2.5 mg/3 ml Neb NEB PRN (12:29)
[2020-08-26 13:42] LABS: Actual Bicarbonate (HCO3a) 33.5 mEq/L (22-28); Base Excess (BEa) 5.1 mEq/L (-2.0 to +3.0); Calcium, Ionized (arterial) 1.22 mmol/L (1.12-1.30); Carboxyhemoglobin (COHb) 0.3 gm% (0.0-3.0); Hemoglobin (Hb) 12.9 g/dL (12.0-16.0); Potassium - ABG Lab 4.18 mmol/L (3.70-5.30); pH, Arterial 7.31 (7.35-7.45)
[2020-08-26 13:44] LABS: CO2 Tension 68.7 mmHg (35.0-45.0); Puncture Site LR
--- NOTE | 2020-08-26 14:22 | PDOC.HOSPP ---
- Subjective Encounter Date: 08/26/20 Encounter Time: 11:50 Subjective: Patient is doing well. She is satting 100% with 3 L oxygen by nasal cannula. - Objective Vital Signs & Weight: Vital Signs (12 hours) Temp Pulse Pulse Pulse Resp BP BP 08/26/20 13:42 93 18 08/26/20 11:00 98.2 F 08/26/20 09:20 94 99 156/87 H 170/89 H 08/26/20 08:00 08/26/20 07:46 98.4 F 08/26/20 05:09 95 15 08/26/20 03:46 97.4 F L Pulse Ox Pulse Ox Pulse Ox 08/26/20 13:42 100 08/26/20 11:00 08/26/20 09:20 100 97 08/26/20 08:00 100 08/26/20 07:46 08/26/20 05:09 100 08/26/20 03:46 Weight Weight 99 lb I&O: 08/25/20 08/26/20 08/27/20 06:59 06:59 06:59 Intake Total 350 Output Total 440 100 Balance -90 -100 Result Diagrams: 08/26/20 01:48 08/26/20 01:48 Hospitalist ROS - Medication Medications: Active Medications Generic Name Dose Route Start Last Admin Trade Name Freq PRN Reason Stop Dose Admin Albuterol/Ipratropium 3 ml 08/26/20 01:00 08/26/20 13:42 Ipratropium/Albuterol Sulfate 3 Ml Neb NEB 3 ml [id number] ARI Administration Enoxaparin Sodium 30 mg 08/26/20 09:00 08/26/20 08:02 Enoxaparin Sodium 30 Mg/0.3 Ml Syringe SC 30 mg 0900 ARI Administration Famotidine 20 mg 08/26/20 09:00 08/26/20 08:02 Famotidine/Pf 20 Mg/2ml Vial SLOW IVP 20 mg DAILY ARI Administration Vancomycin HCl 750 mg/ Sodium 250 mls @ 250 mls/hr 08/26/20 01:00 08/26/20 01:50 Chloride IVPB 250 mls 0100 ARI Administration Methylprednisolone Sodium Succinate 40 mg 08/25/20 23:59 08/26/20 06:03 Methylprednisolone Sod Succ 40 Mg Vial IVP 40 mg Q6HR ARI Administration Sodium Chloride 10 ml 10/04/20 21:00 08/26/20 08:03 Flush - Normal Saline 10 Ml Syringe IVF 10 ml Q12HR ARI Administration Sodium Chloride 10 ml 08/25/20 20:55 08/26/20 06:03 Flush - Normal Saline 10 Ml Syringe IVF 10 ml Q12HR PRN Administration Saline Flush - Exam General Appearance: NAD, awake alert Eye: PERRL ENT: normocephalic atraumatic Neck: supple Heart: RRR, normal peripheral pulses Respiratory: CTAB, normal chest expansion Gastrointestinal: soft, normal bowel sounds Neurological: cranial nerve grossly intact, no focal deficits Psychiatric: A&O x 3 Hosp A/P - Plan COPD exacerbation High flow oxygen as needed Scheduled DuoNeb, IV Solu-Medrol. Changed to doxycycline.. Allergies to cephalexin and levofloxacin -pulmonary on board (2) Acute on chronic respiratory failure with hypoxia and hypercapnia -As above Elevated BNP with normal creatinine -It is only around 269. Unlikely CHF as an etiology. However will get a 2D echo to rule out cardiomyopathy. (3) Spontaneous pneumothorax -Repeat chest x-ray showed small left-sided pneumothorax but very mild decrease in the size compared to yesterday's. -I do not think repeat chest x-rays is necessary at this point, Unless clinical course changes. (4) HTN (hypertension) Code(s): I10 - ESSENTIAL (PRIMARY) HYPERTENSION Status: Chronic (5) Elevated troponin -Likely secondary to demand ischemia. -Since CK-MB is about 5 and 87.7 will request a cardiology also to look into this better she needs any aggressive cardiac intervention at this point. -Put her on aspirin, she is not on any beta-olimpia we will hold that as she is admitted for COPD exacerbation. Accelerated hypertension -She is on losartan 50 twice daily. Hyponatremia -Gentle hydration DNR
[2020-08-26] MEDS ORDERED: NS 0.9% w/ 40 MEQ KCL 100 ML IV SCH (14:30)
--- NOTE | 2020-08-26 17:02 | CON ---
DATE OF CONSULTATION: HISTORY OF PRESENT ILLNESS: Libby Ryan is an 84-year-old female with end-stage COPD, who presented to the ER last night with increasing shortness of breath without any fever, chills, saturations in the 70s. She was given several breathing treatments. She states she has several allergies, but she has never had a rash to any of the antibiotics, just not feeling right, unclear what kind of reaction she has to the Symbicort and when I asked her, she was unaware of it. She states it happened years ago. Only medicine at home are ProAir and Spiriva inhaler. On most days, she can barely walk 20 feet without getting short of breath. CT chest showed left-sided pneumothorax, nonspecific nodules. PAST MEDICAL HISTORY: Hypertension, COPD, constipation, hyperlipidemia, high cholesterol, arthritis. PREVIOUS SURGERIES: Bladder suspension, cataracts, hysterectomy, exploratory laparotomy. SOCIAL HISTORY: Alcohol and tobacco abuse right now. Former smoker, quit smoking 20 years ago. HOME MEDICINES: As outlined include: 1. Breo one puff a day. 2. Albuterol inhaler. 3. Spiriva inhaler. 4. Norvasc 5. 5. Omeprazole. 6. Losartan. 7. Zetia. 8. Synthroid 50. ALLERGIES: SYMBICORT IS NOTED, I AM NOT SO SURE WHAT KIND OF REACTION. KEFLEX, HYDROCHLOROTHIAZIDE, LEVAQUIN. SHE SAYS SHE HAS NEVER HAD A RASH. PHYSICAL EXAMINATION: GENERAL: She is in mild distress. VITAL SIGNS: Her saturations are 99% on 2 L, temperature 98, pulse 95, blood pressure 120/80. CHEST: Decreased breath sounds in left lung. CARDIAC: Normal S1 and S2. No gallops. ABDOMEN: No masses. LABORATORY DATA: White count 7000, H and H are 12 and 37, platelet count is normal, slight left shift. PO2 of 122, pCO2 of 84, pH 7.22. Lytes are normal. Sodium 132. BNP 269. ASSESSMENT: Chronic obstructive pulmonary disease exacerbation, bronchitis, spontaneous left pneumothorax, depression, major anxiety. PLAN: Agree with steroids, neb treatments, supportive care, antibiotics, pleural-based density of left upper lobe abutting the pleural surface. She is not a candidate for any kind of diagnostic procedure at this time. We will continue to follow in the MICU. This is a consultation note, 70 minutes, 50% direct patient care. Job ID: [id number]
[2020-08-26] MEDS ORDERED: Sodium Chloride 0.9% 1,000 ML IV SCH (18:00)
[2020-08-26] MEDS ORDERED: Mometasone 100 MCG/Formoterol 5 MCG 120 PUFF INHALER INH SCH (18:30)
[2020-08-26] MEDS: Mometasone 200 MCG/Formoterol 5 MCG 120 PUFF INHALER INH SCH (18:41)
[2020-08-26] MEDS: Doxycycline 100 MG CAP PO SCH (20:30)
[2020-08-26] MEDS: Losartan 25 MG TAB PO SCH (20:30)
[2020-08-26] MEDS: Amlodipine 5 MG TAB PO SCH (20:31)
[2020-08-26] MEDS: Ezetimibe 10 MG TAB PO SCH (20:31)
[2020-08-26] MEDS: Melatonin 3 MG TAB PO SCH (20:32)
[2020-08-26] MEDS ORDERED: FLU VACC QS2020-21(65YR UP)/PF 240 MCG/0.7 ML SYRINGE IM ONE (21:00)
[2020-08-27] MEDS: methylPREDNISolone Sod Succ 40 MG VIAL IVP SCH ×4 (00:17→17:53)
[2020-08-27 04:14] LABS: Band 2 % (5-11); Hemoglobin 12.4 g/dL (12.0-16.0); Lymphocytes 6 % (21-51); MDiff Complete? YES; Mean Corpuscular HGB CONC 32.7 g/dL (32.0-36.0); Mean Corpuscular Hemoglobin 32.3 pg (27.0-31.0); Mean Corpuscular Volume 98.8 fL (78.0-98.0); Monocytes 5 % (0-10); Neutrophil 87 % (42-75); Platelet Count 295 thou/uL (130-400); Platelet Morphology Comment Appears Adequate; RBC Distribution Width 12.5 % (11.5-14.5); RBC Morphology Normal; Red Blood Cell (RBC) Count 3.85 mill/uL (4.20-5.40); White Blood Cell (WBC) Count 8.2 thou/uL (4.8-10.8)
[2020-08-27 04:18] LABS: Anion Gap 12 mmol/L (10-20); BUN (Urea Nitrogen) 12 mg/dL (9.8-20.1); Calc. Creatinine Clearance 44 mL/min (70-130); Carbon Dioxide 31 mmol/L (23-31); Chloride 96 mmol/L (98-107); Estimated GFR-MDRD 84; Glucose 141 mg/dL (83-110); Potassium 5.2 mmol/L (3.5-5.1); Sodium 134 mmol/L (136-145)
[2020-08-27] MEDS: Levothyroxine Sodium 50 MCG TAB PO SCH (06:25)
[2020-08-27] MEDS: Mometasone 200 MCG/Formoterol 5 MCG 120 PUFF INHALER INH SCH ×2 (06:37→18:46)
--- NOTE | 2020-08-27 08:13 | RAD ---
RADIOGRAPH CHEST 1 VIEW: DATE: 08/27/2020 4:05 AM HISTORY: 84-year-old female follow-up pneumothorax COMPARISON: 08/26/2020 9:50 AM FINDINGS: There is hyperinflation of the lungs, consistent with COPD. There is no consolidation, cardiomegaly, or pneumothorax. The lateral costophrenic angles are not effaced. The tiny left apical pneumothorax is currently difficult to visualize. It is apparently minimally smaller. The lucency at the left late ral base representing basilar component of pneumothorax, appears slightly smaller now than yesterday. There is a faint patchy small nodular opacity in the left midlung zone. See separate repor t of the chest CTA. IMPRESSION: 1) small left pneumothorax may be minimally smaller than yesterday.. 2) emphysema.
[2020-08-27] MEDS ORDERED: Amlodipine 5 MG TAB PO SCH (09:00)
[2020-08-27] MEDS ORDERED: Non-Formulary Item 1 EACH (Tiotropium [Spiriva Handihaler] 18 MCG Box) INH SCH (09:00)
[2020-08-27] MEDS: Doxycycline 100 MG CAP PO SCH ×2 (09:25→20:36)
[2020-08-27] MEDS: Multivit, Therapeutic 1 TAB PO SCH (09:25)
[2020-08-27] MEDS: Amlodipine 5 MG TAB PO SCH ×2 (09:25→20:36)
[2020-08-27] MEDS: Calcium Carbonate 600 MG + Vit D TAB PO SCH (09:25)
[2020-08-27] MEDS: Losartan 25 MG TAB PO SCH (09:25)
[2020-08-27] MEDS: Enoxaparin Sodium 30 MG/0.3 ML SYRINGE SC SCH (09:26)
[2020-08-27] MEDS: Ascorbic Acid 500 mg Chewable Tablet PO SCH (09:26)
[2020-08-27] MEDS: Famotidine/PF 20 mg/2ml Vial SLOW IVP SCH (09:26)
[2020-08-27] MEDS ORDERED: cloNIDine 0.1 MG TAB PO PRN (09:41)
--- NOTE | 2020-08-27 09:55 | PRG ---
DATE OF SERVICE: 08/27/2020 SUBJECTIVE: This morning, she is awake, alert, and responsive. She says she is less short of breath. No coughing. OBJECTIVE: VITAL SIGNS: Sats are 100% on 2 L, pulse , respiratory rate 18. X-ray still shows maybe still a small pneumothorax on the left side. CHEST: No wheezing. No crackles. CARDIAC: Normal S1, S2. No gallops. ABDOMEN: No masses. LABORATORY DATA: Unremarkable. Her pO2 is 72, pCO2 ASSESSMENT: 1. Acute respiratory failure. 2. Spontaneous pneumothorax. 3. Bronchitis. PLAN: She will be transferred out of the MICU. Switch over to oral antibiotics. She is going to benefit probably from noninvasive ventilation at nighttime, nocturnal vent. Because of end-stage COPD and underlying respiratory acidosis, this has been arranged. We will follow. Job ID: [id number]
--- NOTE | 2020-08-27 13:29 | PDOC.HOSPP ---
- Subjective Encounter Date: 08/27/20 Encounter Time: 11:10 Subjective: Patient is trying to have her snacks/mail. She does have a short of breath at rest. For is she is swallowing very slowly. Repeat chest x-ray this morning showed improved pneumothorax but still exist. She is safe to be transferred out of [facility]. Healthcare Administration [facility] recommended nocturnal BiPAP. - Objective Vital Signs & Weight: Vital Signs (12 hours) Temp Pulse Resp Pulse Ox 08/27/20 11:30 98.1 F 08/27/20 09:25 92 08/27/20 07:25 97.9 F 08/27/20 06:38 92 24 H 100 08/27/20 03:00 97.6 F Weight Weight 100 lb 4.8 oz Most Recent Monitor Data Heart Rate from ECG 101 NIBP 147/84 NIBP BP-Mean 105 Respiration from ECG 18 SpO2 99 I&O: 08/26/20 08/27/20 08/28/20 06:59 06:59 06:59 Intake Total 350 Output Total 440 1030 Balance -90 -1030 Result Diagrams: 08/27/20 03:15 08/27/20 03:15 Hospitalist ROS - Medication Medications: Active Medications Generic Name Dose Route Start Last Admin Trade Name Freq PRN Reason Stop Dose Admin Albuterol/Ipratropium 3 ml 08/26/20 01:00 08/27/20 06:38 Ipratropium/Albuterol Sulfate 3 Ml Neb NEB 3 ml [id number] ARI Administration Amlodipine Besylate 5 mg 08/26/20 21:00 08/27/20 09:25 Amlodipine 5 Mg Tab PO 5 mg BID ARI Administration Ascorbic Acid 1,000 mg 08/27/20 09:00 08/27/20 09:26 Ascorbic Acid 500 Mg Chewable Tablet PO 1,000 mg DAILY ARI Administration Calcium/Vitamin D 1 tab 08/27/20 09:00 08/27/20 09:25 Calcium Carbonate 600 Mg + Vit D Tab PO 1 tab DAILY ARI Administration Doxycycline Hyclate 100 mg 08/26/20 21:00 08/27/20 09:25 Doxycycline 100 Mg Cap PO 100 mg BID ARI Administration Ezetimibe 10 mg 08/26/20 21:00 08/26/20 20:31 Ezetimibe 10 Mg Tab PO 10 mg HS ARI Administration Enoxaparin Sodium 30 mg 08/26/20 09:00 08/27/20 09:26 Enoxaparin Sodium 30 Mg/0.3 Ml Syringe SC 30 mg 0900 ARI Administration Famotidine 20 mg 08/26/20 09:00 08/27/20 09:26 Famotidine/Pf 20 Mg/2ml Vial SLOW IVP Not Given DAILY ARI Levothyroxine Sodium 50 mcg 08/27/20 06:00 08/27/20 06:25 Levothyroxine Sodium 50 Mcg Tab PO 50 mcg 0600 ARI Administration Melatonin 3 mg 08/26/20 21:00 08/26/20 20:32 Melatonin 3 Mg Tab PO 3 mg HS ARI Administration Methylprednisolone Sodium Succinate 40 mg 08/25/20 23:59 08/27/20 06:25 Methylprednisolone Sod Succ 40 Mg Vial IVP 40 mg Q6HR ARI Administration Mometasone Furoate/Formoterol Fumar 2 puff 08/26/20 18:30 08/27/20 06:37 Mometasone 200 Mcg/Formoterol 5 Mcg 120 Puff Inhaler INH 2 puff BID-RT ARI Administration Multivitamins 1 tab 08/27/20 09:00 08/27/20 09:25 Multivit, Therapeutic 1 Tab PO 1 tab DAILY ARI Administration Pantoprazole Sodium 40 mg 08/27/20 09:00 08/27/20 09:25 Pantoprazole 40 Mg Tab PO 40 mg DAILY ARI Administration Sodium Chloride 10 ml 08/25/20 21:00 08/27/20 09:27 Flush - Normal Saline 10 Ml Syringe IVF 10 ml Q12HR ARI Administration Sodium Chloride 10 ml 08/25/20 20:55 08/26/20 06:03 Flush - Normal Saline 10 Ml Syringe IVF 10 ml Q12HR PRN Administration Saline Flush Sodium Polystyrene Sulfonate 30 gm 08/27/20 09:45 08/27/20 12:22 Sodium Polystyrene Sulfonate 15 Gm/60 Ml Bot PO 08/27/20 14:00 Not Given NOW ARI - Exam General Appearance: NAD, awake alert ENT: normocephalic atraumatic Neck: supple Heart: RRR Respiratory: CTAB, normal chest expansion Gastrointestinal: soft, normal bowel sounds Neurological: no focal deficits Psychiatric: A&O x 3 Hosp A/P - Plan COPD exacerbation High flow oxygen as needed Scheduled DuoNeb, IV Solu-Medrol. Changed to doxycycline.. Allergies to cephalexin and levofloxacin -pulmonary on board (2) Acute on chronic respiratory failure with hypoxia and hypercapnia -As above Elevated BNP with normal creatinine -It is only around 269. Unlikely CHF as an etiology. However will get a 2D echo to rule out cardiomyopathy. (3) Spontaneous pneumothorax -Repeat chest x-ray showed small left-sided pneumothorax but very mild decrease in the size compared to yesterday's. -I do not think repeat chest x-rays is necessary at this point, Unless clinical course changes. (4) HTN (hypertension) Code(s): I10 - ESSENTIAL (PRIMARY) HYPERTENSION Status: Chronic (5) Elevated troponin -Likely secondary to demand ischemia. -Since CK-MB is about 5 and 87.7 will request a cardiology also to look into this better she needs any aggressive cardiac intervention at this point. -Put her on aspirin, she is not on any beta-olimpia we will hold that as she is admitted for COPD exacerbation. Accelerated hypertension -She is on losartan 50 twice daily. Hyponatremia--------------------> improving -Gentle hydration DNR She does have a short of breath at rest. For is she is swallowing very slowly. Repeat chest x-ray this morning showed improved pneumothorax but still exist. She is safe to be transferred out of [facility]. Healthcare Administration [facility] recommended nocturnal BiPAP. She would benefit with pulmonary rehab.
[2020-08-27 17:09] LABS: Potassium 4.4 mmol/L (3.5-5.1)
[2020-08-27] MEDS: Ezetimibe 10 MG TAB PO SCH (20:35)
[2020-08-27] MEDS: Melatonin 3 MG TAB PO SCH (20:36)
[2020-08-28] MEDS: methylPREDNISolone Sod Succ 40 MG VIAL IVP SCH ×2 (00:18→05:11)
[2020-08-28] MEDS: Levothyroxine Sodium 50 MCG TAB PO SCH (05:11)
[2020-08-28 05:47] LABS: Band 6 % (5-11); Hemoglobin 13.4 g/dL (12.0-16.0); Lymphocytes 4 % (21-51); MDiff Complete? YES; Mean Corpuscular HGB CONC 32.5 g/dL (32.0-36.0); Mean Corpuscular Volume 98.4 fL (78.0-98.0); Mean Platelet Volume 6.9 fL (7.4-10.4); Monocytes 2 % (0-10); Neutrophil 88 % (42-75); Platelet Count 332 thou/uL (130-400); Platelet Morphology Comment Appears Adequate; RBC Distribution Width 12.4 % (11.5-14.5); Red Blood Cell (RBC) Count 4.19 mill/uL (4.20-5.40); White Blood Cell (WBC) Count 9.3 thou/uL (4.8-10.8)
[2020-08-28 05:51] LABS: Anion Gap 14 mmol/L (10-20); BUN (Urea Nitrogen) 15 mg/dL (9.8-20.1); Calc. Creatinine Clearance 47 mL/min (70-130); Calcium 9.5 mg/dL (7.8-10.44); Carbon Dioxide 36 mmol/L (23-31); Chloride 89 mmol/L (98-107); Estimated GFR-MDRD 88; Glucose 134 mg/dL (83-110); Potassium 4.8 mmol/L (3.5-5.1); Sodium 134 mmol/L (136-145)
[2020-08-28] MEDS: Mometasone 200 MCG/Formoterol 5 MCG 120 PUFF INHALER INH SCH ×2 (07:07→18:49)
[2020-08-28] MEDS: Multivit, Therapeutic 1 TAB PO SCH (08:03)
[2020-08-28] MEDS: Calcium Carbonate 600 MG + Vit D TAB PO SCH (08:03)
[2020-08-28] MEDS: Ascorbic Acid 500 mg Chewable Tablet PO SCH (08:03)
[2020-08-28] MEDS: Amlodipine 5 MG TAB PO SCH ×2 (08:03→20:31)
[2020-08-28] MEDS: Doxycycline 100 MG CAP PO SCH ×2 (08:03→20:31)
[2020-08-28] MEDS: Enoxaparin Sodium 30 MG/0.3 ML SYRINGE SC SCH (08:04)
[2020-08-28] MEDS: Famotidine/PF 20 mg/2ml Vial SLOW IVP SCH (08:04)
[2020-08-28] MEDS: Polyethylene Glycol 3350 17 GM Packet PO PRN (08:06)
--- NOTE | 2020-08-28 10:01 | RAD ---
CHEST 1 VIEW: Date: 08/28/2020 INDICATION: History of pneumothorax. COMPARISON: Prior exam dated 08/27/2020. FINDINGS: Hyperexpansion of the lung and chronic lung changes are stable. Left basilar pneumothorax appears to have further decreased in size. Mild cardiomegaly is stable. Chronic osseous changes are stable. IMPRESSION: 1. Slight decrease in size of small left pneumothorax. 2. Emphysematous change is similar. POS: BH
--- NOTE | 2020-08-28 10:43 | PRG ---
DATE OF SERVICE: 08/28/2020 SUBJECTIVE: Libby Ryan is an 84-year-old female, who says she is better, but weak. X-ray shows stable findings. No further increase in the pneumothorax on the left side. OBJECTIVE: VITAL SIGNS: Temperature 98, blood pressure 161/84, respiratory rate 18, sats are 90% on room air. CHEST: Decreased breath sounds. No wheezing. CARDIAC: Normal S1, S2. No gallops. ABDOMEN: No masses. CXR NO PNEUMO Daily lab is being ordered ,DC All cultures are negative. IMPRESSION: COPD exacerbation, bronchitis, spontaneous pneumothorax, severe deconditioning. PLAN: PT, supportive care. Hopefully, home in the next several days. Job ID: [id number] [facility]
--- NOTE | 2020-08-28 12:32 | PDOC.HOSPP ---
- Subjective Encounter Date: 08/28/20 Encounter Time: 10:40 Subjective: She is resting. She does not have any acuity. Discharge plan discussed. Patient lives alone. Rehab plan discussed. She wants to discuss with her family about that. Slow clinical improvement-pulmonary benavides. - Objective Vital Signs & Weight: Vital Signs (12 hours) Temp Pulse Resp BP BP Pulse Ox 08/28/20 08:03 93 161/85 H 08/28/20 08:00 99 08/28/20 07:29 98.4 F 93 16 161/85 H 99 08/28/20 07:09 95 18 93 L 08/28/20 07:07 91 18 94 L 08/28/20 04:00 97.7 F 93 20 159/81 H 93 L Weight Weight 102 lb 6 oz Most Recent Monitor Data Heart Rate from ECG 96 NIBP 150/80 NIBP BP-Mean 103 Respiration from ECG 20 SpO2 96 I&O: 08/27/20 08/28/20 08/29/20 06:59 06:59 06:59 Intake Total 450 Output Total 1030 1150 Balance -1030 -700 Result Diagrams: 08/28/20 05:17 08/28/20 05:17 Hospitalist ROS - Medication Medications: Active Medications Generic Name Dose Route Start Last Admin Trade Name Freq PRN Reason Stop Dose Admin Albuterol/Ipratropium 3 ml 08/26/20 01:00 08/28/20 07:09 Ipratropium/Albuterol Sulfate 3 Ml Neb NEB 3 ml [id number] ARI Administration Amlodipine Besylate 5 mg 08/26/20 21:00 08/28/20 08:03 Amlodipine 5 Mg Tab PO 5 mg BID ARI Administration Ascorbic Acid 1,000 mg 08/27/20 09:00 08/28/20 08:03 Ascorbic Acid 500 Mg Chewable Tablet PO 1,000 mg DAILY ARI Administration Calcium/Vitamin D 1 tab 08/27/20 09:00 08/28/20 08:03 Calcium Carbonate 600 Mg + Vit D Tab PO 1 tab DAILY ARI Administration Doxycycline Hyclate 100 mg 08/26/20 21:00 08/28/20 08:03 Doxycycline 100 Mg Cap PO 100 mg BID ARI Administration Ezetimibe 10 mg 08/26/20 21:00 08/27/20 20:35 Ezetimibe 10 Mg Tab PO 10 mg HS ARI Administration Enoxaparin Sodium 30 mg 08/26/20 09:00 08/28/20 08:04 Enoxaparin Sodium 30 Mg/0.3 Ml Syringe SC 30 mg 0900 ARI Administration Famotidine 20 mg 08/26/20 09:00 08/28/20 08:04 Famotidine/Pf 20 Mg/2ml Vial SLOW IVP Not Given DAILY ARI Levothyroxine Sodium 50 mcg 08/27/20 06:00 08/28/20 05:11 Levothyroxine Sodium 50 Mcg Tab PO 50 mcg 0600 ARI Administration Melatonin 3 mg 08/26/20 21:00 08/27/20 20:36 Melatonin 3 Mg Tab PO 3 mg HS ARI Administration Mometasone Furoate/Formoterol Fumar 2 puff 08/26/20 18:30 08/28/20 07:07 Mometasone 200 Mcg/Formoterol 5 Mcg 120 Puff Inhaler INH 2 puff BID-RT ARI Administration Multivitamins 1 tab 08/27/20 09:00 08/28/20 08:03 Multivit, Therapeutic 1 Tab PO 1 tab DAILY ARI Administration Pantoprazole Sodium 40 mg 08/27/20 09:00 08/28/20 08:03 Pantoprazole 40 Mg Tab PO 40 mg DAILY ARI Administration Polyethylene Glycol 17 gm 08/26/20 12:24 08/28/20 08:06 Polyethylene Glycol 3350 17 Gm Packet PO 17 gm DAILYPRN PRN Administration Constipation Sodium Chloride 10 ml 08/25/20 21:00 08/28/20 08:04 Flush - Normal Saline 10 Ml Syringe IVF 10 ml Q12HR ARI Administration Sodium Chloride 10 ml 08/25/20 20:55 08/26/20 06:03 Flush - Normal Saline 10 Ml Syringe IVF 10 ml Q12HR PRN Administration Saline Flush - Exam General Appearance: awake alert, ill appearing General - other findings: Severely deconditioned and malnourished looking. Eye: PERRL ENT: normocephalic atraumatic Neck: supple Heart: RRR Respiratory: CTAB, normal chest expansion Gastrointestinal: soft, normal bowel sounds Psychiatric: A&O x 3 Hosp A/P - Plan COPD exacerbation Bronchitis Spontaneous pneumothorax High flow oxygen as needed Scheduled DuoNeb, IV Solu-Medrol. Changed to doxycycline.. Allergies to cephalexin and levofloxacin -pulmonary on board (2) Acute on chronic respiratory failure with hypoxia and hypercapnia -As above Elevated BNP with normal creatinine -It is only around 269. Unlikely CHF as an etiology. However will get a 2D echo to rule out cardiomyopathy. (3) Spontaneous pneumothorax -Repeat chest x-ray showed small left-sided pneumothorax but very mild decrease in the size compared to yesterday's. -I do not think repeat chest x-rays is necessary at this point, Unless clinical course changes. (4) HTN (hypertension) Code(s): I10 - ESSENTIAL (PRIMARY) HYPERTENSION Status: Chronic (5) Elevated troponin -Likely secondary to demand ischemia. -Since CK-MB is about 5 and 87.7 will request a cardiology also to look into this better she needs any aggressive cardiac intervention at this point. -Put her on aspirin, she is not on any beta-olimpia we will hold that as she is admitted for COPD exacerbation. Accelerated hypertension -She is on losartan 50 twice daily. Hyponatremia--------------------> improving -Gentle hydration DNR She does have a short of breath at rest. For is she is swallowing very slowly. Repeat chest x-ray this morning showed improved pneumothorax but still exist. She is safe to be transferred out of [facility]. Snowboard Designer recommended nocturnal BiPAP. She would benefit with pulmonary rehab. 7th COPD exacerbation Severe deconditioning Moderate malnutrition probably protein deficiency and a BMI of 20 -We will get prealbumin level nutrition consult. -Again would benefit with rehab. She will discuss with the family.
[2020-08-28] MEDS: Ezetimibe 10 MG TAB PO SCH (20:31)
[2020-08-28] MEDS: Melatonin 3 MG TAB PO SCH (20:32)
[2020-08-28] MEDS: hydrALAZINE 25 MG TAB PO SCH (20:32)
[2020-08-29] MEDS: Levothyroxine Sodium 50 MCG TAB PO SCH (05:30)
[2020-08-29] MEDS: Mometasone 200 MCG/Formoterol 5 MCG 120 PUFF INHALER INH SCH ×2 (07:42→19:35)
[2020-08-29] MEDS: Doxycycline 100 MG CAP PO SCH ×2 (09:31→20:18)
[2020-08-29] MEDS: predniSONE 20 MG TAB PO SCH (09:32)
[2020-08-29] MEDS: hydrALAZINE 25 MG TAB PO SCH ×2 (09:32→20:19)
[2020-08-29] MEDS: Ascorbic Acid 500 mg Chewable Tablet PO SCH (09:32)
[2020-08-29] MEDS: Calcium Carbonate 600 MG + Vit D TAB PO SCH (09:32)
[2020-08-29] MEDS: Famotidine/PF 20 mg/2ml Vial SLOW IVP SCH (09:33)
[2020-08-29] MEDS: Multivit, Therapeutic 1 TAB PO SCH (09:33)
[2020-08-29] MEDS: Amlodipine 5 MG TAB PO SCH ×2 (09:33→20:17)
[2020-08-29] MEDS: Enoxaparin Sodium 30 MG/0.3 ML SYRINGE SC SCH (09:33)
[2020-08-29] MEDS: Polyethylene Glycol 3350 17 GM Packet PO PRN (09:35)
--- NOTE | 2020-08-29 10:14 | PRG ---
DATE OF SERVICE: 08/29/2020 SUBJECTIVE: This morning, she is weak. She is still short of breath. OBJECTIVE: VITAL SIGNS: Pulse is 73, sats are 90% on 2 L, blood pressure 130/80. CHEST: Decreased breath sounds. No wheezing. CARDIAC: Normal S1, S2. No gallops. ABDOMEN: No masses. ASSESSMENT: 1. Spontaneous left-sided pneumothorax. 2. End-stage chronic obstructive pulmonary disease. 3. DNR. PLAN: A CT chest is being done to assess the pneumothorax since it is not easily accessible on the chest x-ray and this looks stable if she could be discharged home with home health. We will follow. Job ID: [id number]
--- NOTE | 2020-08-29 11:42 | CT ---
CT Chest WO Con History: Shortness of breath and trouble breathing. Pneumothorax Comparison: Radiograph prior day Findings: Trace left anterior basilar pneumothorax. Moderate layering left pleural effusion. Trace ri ght pleural effusion. Similar appearance of the peripheral posterior left upper lobe pulmonary nodule measuring up to 1 cm. Peripheral pleural and parenchymal scar along the right lower lobe is similar. No acute thoracic spine compression deformity. Sternum and manubrium are intact. No acute displaced rib fracture. Impression: 1. Trace left anterior basilar pneumothorax without tension. 2. Severe COPD. 3. Similar appearance of the peripheral left upper lobe nodule and right lower lobe pleural and paren chymal scar. Follow-up CT of the chest in 3 months is recommended. 4. New moderate layering left pleural effusion.
--- NOTE | 2020-08-29 14:07 | PDOC.HOSPP ---
- Subjective Encounter Date: 08/29/20 Encounter Time: 11:00 Subjective: Patient returned from her CT chest. Home health has been ordered by section 8 property manager. Patient has no acute complaints. Today when we talked to her she said she will discuss with the family member regarding rehab options. - Objective Vital Signs & Weight: Vital Signs (12 hours) Pulse Resp Pulse Ox Pulse Ox 08/29/20 11:42 92 16 96 08/29/20 09:33 83 08/29/20 09:32 83 08/29/20 08:31 92 L 08/29/20 07:44 98 08/29/20 07:42 83 16 97 Weight Admit Weight 99 lb Weight 99 lb 5 oz Most Recent Monitor Data Heart Rate from ECG 96 NIBP 150/80 NIBP BP-Mean 103 Respiration from ECG 20 SpO2 96 I&O: 08/28/20 08/29/20 08/30/20 06:59 06:59 06:59 Intake Total 450 1500 Output Total 1150 1600 Balance -700 -100 Result Diagrams: 08/28/20 05:17 08/28/20 05:17 Hospitalist ROS - Medication Medications: Active Medications Generic Name Dose Route Start Last Admin Trade Name Freq PRN Reason Stop Dose Admin Albuterol/Ipratropium 3 ml 08/26/20 01:00 08/29/20 11:42 Ipratropium/Albuterol Sulfate 3 Ml Neb NEB 3 ml [id number] ARI Administration Amlodipine Besylate 5 mg 08/26/20 21:00 08/29/20 09:33 Amlodipine 5 Mg Tab PO 5 mg BID ARI Administration Ascorbic Acid 1,000 mg 08/27/20 09:00 08/29/20 09:32 Ascorbic Acid 500 Mg Chewable Tablet PO 1,000 mg DAILY ARI Administration Calcium/Vitamin D 1 tab 08/27/20 09:00 08/29/20 09:32 Calcium Carbonate 600 Mg + Vit D Tab PO 1 tab DAILY ARI Administration Clonidine 0.1 mg 08/27/20 09:41 08/28/20 20:33 Clonidine 0.1 Mg Tab PO 0.1 mg Q4H PRN Administration Blood Pressure Doxycycline Hyclate 100 mg 08/26/20 21:00 08/29/20 09:31 Doxycycline 100 Mg Cap PO 100 mg BID ARI Administration Ezetimibe 10 mg 08/26/20 21:00 08/28/20 20:31 Ezetimibe 10 Mg Tab PO 10 mg HS ARI Administration Enoxaparin Sodium 30 mg 08/26/20 09:00 08/29/20 09:33 Enoxaparin Sodium 30 Mg/0.3 Ml Syringe SC 30 mg 0900 ARI Administration Famotidine 20 mg 08/26/20 09:00 08/29/20 09:33 Famotidine/Pf 20 Mg/2ml Vial SLOW IVP 20 mg DAILY ARI Administration Hydralazine HCl 25 mg 08/28/20 21:00 08/29/20 09:32 Hydralazine 25 Mg Tab PO 25 mg BID ARI Administration Levothyroxine Sodium 50 mcg 08/27/20 06:00 08/29/20 05:30 Levothyroxine Sodium 50 Mcg Tab PO 50 mcg 0600 ARI Administration Melatonin 3 mg 08/26/20 21:00 08/28/20 20:32 Melatonin 3 Mg Tab PO 3 mg HS ARI Administration Mometasone Furoate/Formoterol Fumar 2 puff 08/26/20 18:30 08/29/20 07:42 Mometasone 200 Mcg/Formoterol 5 Mcg 120 Puff Inhaler INH 2 puff BID-RT ARI Administration Multivitamins 1 tab 08/27/20 09:00 08/29/20 09:33 Multivit, Therapeutic 1 Tab PO 1 tab DAILY ARI Administration Pantoprazole Sodium 40 mg 08/27/20 09:00 08/29/20 09:33 Pantoprazole 40 Mg Tab PO 40 mg DAILY ARI Administration Polyethylene Glycol 17 gm 08/26/20 12:24 08/29/20 09:35 Polyethylene Glycol 3350 17 Gm Packet PO 17 gm DAILYPRN PRN Administration Constipation Prednisone 40 mg 08/29/20 08:00 08/29/20 09:32 Prednisone 20 Mg Tab PO 40 mg QAM-WM ARI Administration Sodium Chloride 10 ml 08/25/20 21:00 08/29/20 09:33 Flush - Normal Saline 10 Ml Syringe IVF 10 ml Q12HR ARI Administration Sodium Chloride 10 ml 08/25/20 20:55 08/26/20 06:03 Flush - Normal Saline 10 Ml Syringe IVF 10 ml Q12HR PRN Administration Saline Flush - Exam General Appearance: NAD, awake alert Eye: PERRL ENT: normocephalic atraumatic Neck: supple Heart: RRR Respiratory: CTAB, normal chest expansion Gastrointestinal: soft, normal bowel sounds Neurological: no focal deficits Psychiatric: A&O x 3 Hosp A/P - Plan COPD exacerbation Bronchitis Spontaneous pneumothorax High flow oxygen as needed Scheduled DuoNeb, IV Solu-Medrol. Changed to doxycycline.. Allergies to cephalexin and levofloxacin -pulmonary on board (2) Acute on chronic respiratory failure with hypoxia and hypercapnia -As above Elevated BNP with normal creatinine -It is only around 269. Unlikely CHF as an etiology. However will get a 2D ec ho to rule out cardiomyopathy. (3) Spontaneous pneumothorax -Repeat chest x-ray showed small left-sided pneumothorax but very mild decrease in the size compared to yesterday's. -I do not think repeat chest x-rays is necessary at this point, Unless clinical course changes. (4) HTN (hypertension) Code(s): I10 - ESSENTIAL (PRIMARY) HYPERTENSION Status: Chronic (5) Elevated troponin -Likely secondary to demand ischemia. -Since CK-MB is about 5 and 87.7 will request a cardiology also to look into this better she needs any aggressive cardiac intervention at this point. -Put her on aspirin, she is not on any beta-olimpia we will hold that as she is admitted for COPD exacerbation. Accelerated hypertension -She is on losartan 50 twice daily. Hyponatremia--------------------> improving -Gentle hydration DNR She does have a short of breath at rest. For is she is swallowing very slowly. Repeat chest x-ray this morning showed improved pneumothorax but still exist. She is safe to be transferred out of [facility]. Supervisor Research Shop recommended nocturnal BiPAP. She would benefit with pulmonary rehab. 7th COPD exacerbation Severe deconditioning Moderate malnutrition probably protein deficiency and a BMI of 20 -We will get prealbumin level nutrition consult. -Again would benefit with rehab. She will discuss with the family. 8th End-stage COPD CT shows left anterior basilar pneumothorax without tension Left upper lobe nodule and right lower lobe pleural and parenchymal scar--- repeat CT in 3 months. ----------------> please note she is DNR. A further work-up towards malignancy may not be useful for her given her overall health condition and advanced age New moderate left pleural effusion -I do not think Lasix would help in her situation with pleural. She is already very fragile and debilitated putting her on Lasix will put her on a risk for dehydration as well as fall risk. Will discuss with the patient again regarding pulmonary rehab. If she is not comfortable then will send her home with home health. She is DN AR
[2020-08-29] MEDS: Melatonin 3 MG TAB PO SCH (20:19)
[2020-08-29] MEDS: Ezetimibe 10 MG TAB PO SCH (20:19)
[2020-08-30] MEDS: Levothyroxine Sodium 50 MCG TAB PO SCH (05:27)
[2020-08-30] MEDS: Mometasone 200 MCG/Formoterol 5 MCG 120 PUFF INHALER INH SCH ×2 (06:39→18:52)
[2020-08-30] MEDS: Amlodipine 5 MG TAB PO SCH ×2 (07:56→20:17)
[2020-08-30] MEDS: hydrALAZINE 25 MG TAB PO SCH ×2 (07:57→20:17)
[2020-08-30] MEDS: Doxycycline 100 MG CAP PO SCH ×2 (07:57→20:16)
[2020-08-30] MEDS: Ascorbic Acid 500 mg Chewable Tablet PO SCH (07:58)
[2020-08-30] MEDS: Multivit, Therapeutic 1 TAB PO SCH (07:58)
[2020-08-30] MEDS: Calcium Carbonate 600 MG + Vit D TAB PO SCH (07:58)
[2020-08-30] MEDS: predniSONE 20 MG TAB PO SCH (07:58)
[2020-08-30] MEDS: Famotidine/PF 20 mg/2ml Vial SLOW IVP SCH (07:59)
[2020-08-30] MEDS: Enoxaparin Sodium 30 MG/0.3 ML SYRINGE SC SCH (07:59)
[2020-08-30] MEDS: Polyethylene Glycol 3350 17 GM Packet PO PRN (08:08)
--- NOTE | 2020-08-30 11:21 | PRG ---
DATE OF SERVICE: 08/30/2020 SUBJECTIVE: Libby Ryan is an 84-year-old female. She is better, very anxious. OBJECTIVE: VITAL SIGNS: Temperature 98, pulse 103, blood pressure 120/74, respiratory rate 18, saturations 90% on 2 L. CHEST: Decreased breath sounds. No wheezing. CARDIAC: Normal S1 and S2. No masses. ASSESSMENT: 1. New left pleural effusion. 2. Spontaneous pneumothorax, resolved. 3. End-stage chronic obstructive pulmonary disease. 4. Severe deconditioning. PLAN: She will be ready to be discharged to a detention. We are now going to do a thoracentesis. She is probably going to more than likely get a pneumothorax, hopefully, it is absorbed by itself. It may very be secondary to the pneumothorax. Echo shows a relatively unremarkable EF. Job ID: [id number]
--- NOTE | 2020-08-30 15:07 | PDOC.HOSPP ---
- Subjective Encounter Date: 08/30/20 Encounter Time: 09:40 Subjective: Patient is fatigued and little depressed. x-ray showed a left pleural effusion. Plan for thoracentesis today. She would really benefit with the pulmonary rehab. - Objective Vital Signs & Weight: Vital Signs (12 hours) Temp Pulse Resp BP BP Pulse Ox Pulse Ox 08/30/20 13:56 92 16 94 L 08/30/20 08:38 93 L 08/30/20 08:17 98 08/30/20 07:57 103 H 124/74 08/30/20 07:56 103 H 125/71 08/30/20 07:20 98.4 F 96 16 132/76 98 08/30/20 06:40 91 16 95 Pulse Ox Pulse Ox 08/30/20 13:56 08/30/20 08:38 77 L 94 L 08/30/20 08:17 08/30/20 07:57 08/30/20 07:56 08/30/20 07:20 08/30/20 06:40 Weight Admit Weight 99 lb Weight 100 lb 2 oz Most Recent Monitor Data Heart Rate from ECG 96 NIBP 150/80 NIBP BP-Mean 103 Respiration from ECG 20 SpO2 96 I&O: 08/29/20 08/30/20 08/31/20 06:59 06:59 06:59 Intake Total 1500 1220 240 Output Total 1600 1225 Balance -100 -5 240 Result Diagrams: 08/28/20 05:17 08/28/20 05:17 Hospitalist ROS - Medication Medications: Active Medications Generic Name Dose Route Start Last Admin Trade Name Freq PRN Reason Stop Dose Admin Albuterol/Ipratropium 3 ml 08/26/20 01:00 08/30/20 13:56 Ipratropium/Albuterol Sulfate 3 Ml Neb NEB 3 ml [id number] Administration Amlodipine Besylate 5 mg 08/26/20 21:00 08/30/20 07:56 Amlodipine 5 Mg Tab PO 5 mg BID ARI Administration Ascorbic Acid 1,000 mg 08/27/20 09:00 08/30/20 07:58 Ascorbic Acid 500 Mg Chewable Tablet PO 1,000 mg DAILY ARI Administration Calcium/Vitamin D 1 tab 08/27/20 09:00 08/30/20 07:58 Calcium Carbonate 600 Mg + Vit D Tab PO 1 tab DAILY ARI Administration Clonidine 0.1 mg 08/27/20 09:41 08/28/20 20:33 Clonidine 0.1 Mg Tab PO 0.1 mg Q4H PRN Administration Blood Pressure Doxycycline Hyclate 100 mg 08/26/20 21:00 08/30/20 07:57 Doxycycline 100 Mg Cap PO 100 mg BID ARI Administration Ezetimibe 10 mg 08/26/20 21:00 08/29/20 20:19 Ezetimibe 10 Mg Tab PO 10 mg HS ARI Administration Enoxaparin Sodium 30 mg 08/26/20 09:00 08/30/20 07:59 Enoxaparin Sodium 30 Mg/0.3 Ml Syringe SC 30 mg 09 ARI Administration Famotidine 20 mg 08/26/20 09:00 08/30/20 07:59 Famotidine/Pf 20 Mg/2ml Vial SLOW IVP 20 mg DAILY ARI Administration Hydralazine HCl 25 mg 08/28/20 21:00 08/30/20 07:57 Hydralazine 25 Mg Tab PO 25 mg BID ARI Administration Levothyroxine Sodium 50 mcg 08/27/20 06:00 08/30/20 05:27 Levothyroxine Sodium 50 Mcg Tab PO 50 mcg 0600 ARI Administration Melatonin 3 mg 08/26/20 21:00 08/29/20 20:19 Melatonin 3 Mg Tab PO 3 mg HS ARI Administration Mometasone Furoate/Formoterol Fumar 2 puff 08/26/20 18:30 08/30/20 06:39 Mometasone 200 Mcg/Formoterol 5 Mcg 120 Puff Inhaler INH 2 puff BID-RT ARI Administration Multivitamins 1 tab 08/27/20 09:00 08/30/20 07:58 Multivit, Therapeutic 1 Tab PO 1 tab DAILY ARI Administration Pantoprazole Sodium 40 mg 08/27/20 09:00 08/30/20 07:58 Pantoprazole 40 Mg Tab PO 40 mg DAILY ARI Administration Polyethylene Glycol 17 gm 08/26/20 12:24 08/30/20 08:08 Polyethylene Glycol 3350 17 Gm Packet PO 17 gm DAILYPRN PRN Administration Constipation Prednisone 40 mg 08/29/20 08:00 08/30/20 07:58 Prednisone 20 Mg Tab PO 40 mg QAM-WM ARI Administration Sodium Chloride 10 ml 08/25/20 21:00 08/30/20 07:59 Flush - Normal Saline 10 Ml Syringe IVF 10 ml Q12HR ARI Administration Sodium Chloride 10 ml 08/25/20 20:55 08/26/20 06:03 Flush - Normal Saline 10 Ml Syringe IVF 10 ml Q12HR PRN Administration Saline Flush - Exam General Appearance: NAD, awake alert, ill appearing ENT: normocephalic atraumatic Neck: supple Heart: RRR Respiratory: CTAB Gastrointestinal: soft, normal bowel sounds Neurological: no focal deficits Psychiatric: A&O x 3 Hosp A/P - Plan COPD exacerbation Bronchitis Spontaneous pneumothorax High flow oxygen as needed Scheduled DuoNeb, IV Solu-Medrol. Changed to doxycycline.. Allergies to cephalexin and levofloxacin -pulmonary on board (2) Acute on chronic respiratory failure with hypoxia and hypercapnia -As above Elevated BNP with normal creatinine -It is only around 269. Unlikely CHF as an etiology. However will get a 2D echo to rule out cardiomyopathy. (3) Spontaneous pneumothorax -Repeat chest x-ray showed small left-sided pneumothorax but very mild decrease in the size compared to yesterday's. -I do not think repeat chest x-rays is necessary at this point, Unless clinical course changes. (4) HTN (hypertension) Code(s): I10 - ESSENTIAL (PRIMARY) HYPERTENSION Status: Chronic (5) Elevated troponin -Likely secondary to demand ischemia. -Since CK-MB is about 5 and 87.7 will request a cardiology also to look into this better she needs any aggressive cardiac intervention at this point. -Put her on aspirin, she is not on any beta-olimpia we will hold that as she is admitted for COPD exacerbation. Accelerated hypertension -She is on losartan 50 twice daily. Hyponatremia--------------------> improving -Gentle hydration DNR She does have a short of breath at rest. For is she is swallowing very slowly. Repeat chest x-ray this morning showed improved pneumothorax but still exist. She is safe to be transferred out of [facility]. Personnel Psychologist recommended nocturnal BiPAP. She would benefit with pulmonary rehab. 7th COPD exacerbation Severe deconditioning Moderate malnutrition probably protein deficiency and a BMI of 20 -We will get prealbumin level nutrition consult. -Again would benefit with rehab. She will discuss with the family. 8th End-stage COPD CT shows left anterior basilar pneumothorax without tension Left upper lobe nodule and right lower lobe pleural and parenchymal scar--- repeat CT in 3 months. ----------------> please note she is DNR. A further work-up towards malignancy may not be useful for her given her overall health condition and advanced age New moderate left pleural effusion -I do not think Lasix would help in her situation with pleural fluid. She is already very fragile and debilitated putting her on Lasix will put her on a risk for dehydration as well as fall risk. Will discuss with the patient again regarding pulmonary rehab. If she is not comfortable then will send her home with home health. She is DN AR 9th New moderate left pleural effusion -Plan for thoracentesis by pulmonary -Pneumothorax without tension Severe deconditioning Will discuss again with the patient and family as she would benefit with pulmonary rehab.
[2020-08-30] MEDS: Ezetimibe 10 MG TAB PO SCH (20:16)
[2020-08-30] MEDS: Melatonin 3 MG TAB PO SCH (20:16)
[2020-08-31] MEDS: Levothyroxine Sodium 50 MCG TAB PO SCH (05:44)
[2020-08-31] MEDS: Mometasone 200 MCG/Formoterol 5 MCG 120 PUFF INHALER INH SCH ×2 (08:12→18:48)
[2020-08-31] MEDS: Polyethylene Glycol 3350 17 GM Packet PO PRN (09:30)
[2020-08-31] MEDS: Amlodipine 5 MG TAB PO SCH ×2 (11:06→20:26)
[2020-08-31] MEDS: Doxycycline 100 MG CAP PO SCH ×2 (11:06→20:23)
[2020-08-31] MEDS: Ascorbic Acid 500 mg Chewable Tablet PO SCH (11:07)
[2020-08-31] MEDS: predniSONE 20 MG TAB PO SCH (11:07)
[2020-08-31] MEDS: hydrALAZINE 25 MG TAB PO SCH ×2 (11:07→20:26)
[2020-08-31] MEDS: Calcium Carbonate 600 MG + Vit D TAB PO SCH (11:08)
[2020-08-31] MEDS: Enoxaparin Sodium 30 MG/0.3 ML SYRINGE SC SCH (11:08)
[2020-08-31] MEDS: Famotidine/PF 20 mg/2ml Vial SLOW IVP SCH (11:08)
[2020-08-31] MEDS: Multivit, Therapeutic 1 TAB PO SCH (11:08)
[2020-08-31] MEDS ORDERED: predniSONE 20 MG TAB PO SCH (11:30)
--- NOTE | 2020-08-31 11:44 | PRG ---
DATE OF SERVICE: 08/31/2020 SUBJECTIVE: Libby Ryan is an 84-year-old female, who is a DNR. She is weak, she is not ambulating, we are trying to sending her home. OBJECTIVE: VITAL SIGNS: Saturations are 97 on 2 L, blood pressure 130/70, 18. CHEST: Decreased breath sounds, no wheezing. CARDIAC: Normal S1, S2. No gallops. ASSESSMENT: 1. Spontaneous pneumothorax, pretty much resolved. 2. Left pleural effusion. 3. End-stage chronic obstructive pulmonary disease. PLAN: Disposition discharged hopefully once we are able to find a place for the patient. Job ID: [id number]
[2020-08-31] MEDS ORDERED: Fleet Enema 133 ML BOT FS PRN (12:25)
--- NOTE | 2020-08-31 14:16 | PDOC.HOSPP ---
- Subjective Encounter Date: 08/31/20 Encounter Time: 09:30 Subjective: She is at baseline. She has trouble with no bowel movement for almost a week. His stool softeners are not helping. Talk to the nurse will try Dulcolax suppository if it is not helping then she needs a Fleet Enema. I talked to the son and he prefers that she goes to the rehab. - Objective Vital Signs & Weight: Vital Signs (12 hours) Temp Pulse Resp BP BP Pulse Ox 08/31/20 13:45 92 18 95 08/31/20 11:07 97 131/71 08/31/20 11:06 97 131/71 08/31/20 08:13 97 08/31/20 08:12 91 16 98 08/31/20 08:09 91 16 97 08/31/20 07:31 97.8 F 92 17 131/71 99 08/31/20 04:00 97.6 F 90 18 128/76 95 Weight Admit Weight 99 lb Weight 101 lb 11.2 oz Most Recent Monitor Data Heart Rate from ECG 96 NIBP 150/80 NIBP BP-Mean 103 Respiration from ECG 20 SpO2 96 I&O: 08/30/20 08/31/20 09/01/20 06:59 06:59 06:59 Intake Total 1220 740 Output Total 1225 1150 Balance -5 -410 Result Diagrams: 08/28/20 05:17 08/28/20 05:17 Hospitalist ROS - Medication Medications: Active Medications Generic Name Dose Route Start Last Admin Trade Name Freq PRN Reason Stop Dose Admin Albuterol/Ipratropium 3 ml 08/26/20 01:00 08/31/20 13:45 Ipratropium/Albuterol Sulfate 3 Ml Neb NEB 3 ml [id number] ARI Administration Amlodipine Besylate 5 mg 08/26/20 21:00 08/31/20 11:06 Amlodipine 5 Mg Tab PO 5 mg BID ARI Administration Ascorbic Acid 1,000 mg 08/27/20 09:00 08/31/20 11:07 Ascorbic Acid 500 Mg Chewable Tablet PO 1,000 mg DAILY ARI Administration Calcium/Vitamin D 1 tab 08/27/20 09:00 08/31/20 11:08 Calcium Carbonate 600 Mg + Vit D Tab PO 1 tab DAILY ARI Administration Clonidine 0.1 mg 08/27/20 09:41 08/28/20 20:33 Clonidine 0.1 Mg Tab PO 0.1 mg Q4H PRN Administration Blood Pressure Doxycycline Hyclate 100 mg 08/26/20 21:00 08/31/20 11:06 Doxycycline 100 Mg Cap PO 100 mg BID ARI Administration Ezetimibe 10 mg 08/26/20 21:00 08/30/20 20:16 Ezetimibe 10 Mg Tab PO 10 mg HS ARI Administration Enoxaparin Sodium 30 mg 08/26/20 09:00 08/31/20 11:08 Enoxaparin Sodium 30 Mg/0.3 Ml Syringe SC 30 mg 0900 ARI Administration Famotidine 20 mg 08/26/20 09:00 08/31/20 11:08 Famotidine/Pf 20 Mg/2ml Vial SLOW IVP 20 mg DAILY ARI Administration Hydralazine HCl 25 mg 08/28/20 21:00 08/31/20 11:07 Hydralazine 25 Mg Tab PO 25 mg BID ARI Administration Levothyroxine Sodium 50 mcg 08/27/20 06:00 08/31/20 05:44 Levothyroxine Sodium 50 Mcg Tab PO 50 mcg 0600 ARI Administration Melatonin 3 mg 08/26/20 21:00 08/30/20 20:16 Melatonin 3 Mg Tab PO 3 mg HS ARI Administration Mometasone Furoate/Formoterol Fumar 2 puff 08/26/20 18:30 08/31/20 08:12 Mometasone 200 Mcg/Formoterol 5 Mcg 120 Puff Inhaler INH 2 puff BID-RT ARI Administration Multivitamins 1 tab 08/27/20 09:00 08/31/20 11:08 Multivit, Therapeutic 1 Tab PO 1 tab DAILY ARI Administration Pantoprazole Sodium 40 mg 08/27/20 09:00 08/31/20 11:08 Pantoprazole 40 Mg Tab PO 40 mg DAILY ARI Administration Polyethylene Glycol 17 gm 08/26/20 12:24 08/31/20 09:30 Polyethylene Glycol 3350 17 Gm Packet PO 17 gm DAILYPRN PRN Administration Constipation Sodium Chloride 10 ml 08/25/20 21:00 08/31/20 11:08 Flush - Normal Saline 10 Ml Syringe IVF 10 ml Q12HR ARI Administration Sodium Chloride 10 ml 08/25/20 20:55 08/26/20 06:03 Flush - Normal Saline 10 Ml Syringe IVF 10 ml Q12HR PRN Administration Saline Flush - Exam General Appearance: NAD, awake alert Eye: PERRL ENT: normocephalic atraumatic Neck: supple Heart: RRR, normal peripheral pulses Respiratory: normal chest expansion, rales, rhonchi Gastrointestinal: soft, normal bowel sounds Neurological: no focal deficits Psychiatric: A&O x 3 Hosp A/P - Plan COPD exacerbation Bronchitis Spontaneous pneumothorax High flow oxygen as needed Scheduled DuoNeb, IV Solu-Medrol. Changed to doxycycline.. Allergies to cephalexin and levofloxacin -pulmonary on board (2) Acute on chronic respiratory failure with hypoxia and hypercapnia -As above Elevated BNP with normal creatinine -It is only around 269. Unlikely CHF as an etiology. However will get a 2D echo to rule out cardiomyopathy. (3) Spontaneous pneumothorax -Repeat chest x-ray showed small left-sided pneumothorax but very mild decrease in the size compared to yesterday's. -I do not think repeat chest x-rays is necessary at this point, Unless clinical course changes. (4) HTN (hypertension) Code(s): I10 - ESSENTIAL (PRIMARY) HYPERTENSION Status: Chronic (5) Elevated troponin -Likely secondary to demand ischemia. -Since CK-MB is about 5 and 87.7 will request a cardiology also to look into this better she needs any aggressive cardiac intervention at this point. -Put her on aspirin, she is not on any beta-olimpia we will hold that as she is admitted for COPD exacerbation. Accelerated hypertension -She is on losartan 50 twice daily. Hyponatremia--------------------> improving -Gentle hydration COPD exacerbation Severe deconditioning CT shows left anterior basilar pneumothorax without tension Left upper lobe nodule and right lower lobe pleural and parenchymal scar--- repeat CT in 3 months. ----------------> please note she is DNR. A further work-up towards malignancy may not be useful for her given her overall health condition and advanced age New moderate left pleural effusion -The thoracentesis was mentioned in pulmonary note it does not appear the procedure is done yesterday and checked with the nursing as well. No thoracentesis. Talk to the son this morning, as patient wants her family to make the decision for her. -Son strongly prefers her to go to the rehab. -Pending the same for Wednesday.
[2020-08-31] MEDS: Melatonin 3 MG TAB PO SCH (20:26)
[2020-08-31] MEDS: Ezetimibe 10 MG TAB PO SCH (20:26)
[2020-08-31] MEDS: Bisacodyl 10 MG SUPP PR SCH (20:30)
[2020-09-01] MEDS: Levothyroxine Sodium 50 MCG TAB PO SCH (06:01)
[2020-09-01] MEDS: Mometasone 200 MCG/Formoterol 5 MCG 120 PUFF INHALER INH SCH ×2 (07:19→19:01)
[2020-09-01] MEDS ORDERED: Loperamide HCl 2 MG CAP PO PRN (08:04)
[2020-09-01] MEDS ORDERED: Ondansetron PF 4 MG/2 ML Vial IVP PRN (08:04)
[2020-09-01] MEDS ORDERED: Benzonatate 100 MG CAP PO PRN (08:04)
[2020-09-01] MEDS ORDERED: Diabetic Tussin 200 MG/10 ML UDCUP PO PRN (08:04)
[2020-09-01] MEDS ORDERED: Ondansetron ODT 4 MG TAB SL PRN (08:04)
[2020-09-01] MEDS ORDERED: Senokot S 8.6-50 MG TAB PO PRN (08:04)
[2020-09-01] MEDS ORDERED: Cepastat Lozenges 1 LOZ PO PRN (08:04)
[2020-09-01] MEDS ORDERED: Sodium Chloride 0.65% Nasal 44 ML BOT EA NARE PRN (08:04)
[2020-09-01] MEDS ORDERED: Calcium Carbonate 500 MG ChewTAB PO PRN (08:04)
[2020-09-01] MEDS ORDERED: Loratadine 10 MG TAB PO PRN (08:04)
[2020-09-01] MEDS ORDERED: Bisacodyl 10 MG SUPP PR PRN (08:04)
[2020-09-01] MEDS: Doxycycline 100 MG CAP PO SCH ×2 (09:37→21:01)
[2020-09-01] MEDS: Multivit, Therapeutic 1 TAB PO SCH (09:38)
[2020-09-01] MEDS: Calcium Carbonate 600 MG + Vit D TAB PO SCH (09:38)
[2020-09-01] MEDS: hydrALAZINE 25 MG TAB PO SCH ×2 (09:38→21:02)
[2020-09-01] MEDS: Amlodipine 5 MG TAB PO SCH ×2 (09:38→21:01)
[2020-09-01] MEDS: predniSONE 20 MG TAB PO SCH (09:39)
[2020-09-01] MEDS: Ascorbic Acid 500 mg Chewable Tablet PO SCH (09:39)
[2020-09-01] MEDS: Famotidine/PF 20 mg/2ml Vial SLOW IVP SCH (09:39)
[2020-09-01] MEDS: Enoxaparin Sodium 30 MG/0.3 ML SYRINGE SC SCH (09:39)
[2020-09-01] MEDS: Bisacodyl 10 MG SUPP PR SCH ×2 (09:39→21:13)
--- NOTE | 2020-09-01 10:03 | PDOC.HOSPP ---
- Subjective Encounter Date: 09/01/20 Encounter Time: 08:10 Subjective: Patient seen and examined. No new complaints. No overnight events - Objective Vital Signs & Weight: Vital Signs (12 hours) Temp Pulse Resp BP Pulse Ox 09/01/20 07:19 86 18 93 L 09/01/20 07:00 98.7 F 85 16 128/73 93 L 09/01/20 00:18 85 14 95 Weight Admit Weight 99 lb Weight 101 lb 11.2 oz Most Recent Monitor Data Heart Rate from ECG 96 NIBP 150/80 NIBP BP-Mean 103 Respiration from ECG 20 SpO2 96 I&O: 08/31/20 09/01/20 09/02/20 06:59 06:59 06:59 Intake Total 740 1140 Output Total 1150 400 Balance -410 740 Result Diagrams: 08/28/20 05:17 08/28/20 05:17 Radiology Reviewed by me: Yes EKG Reviewed by me: Yes Hospitalist ROS - Review of Systems Constitutional: denies: fever, chills, sweats, weakness, malaise, other ENT: denies: ear pain, ear discharge, nose pain, nose discharge, nose congestion, mouth pain, mouth swelling, throat pain, throat swelling, other Respiratory: denies: cough, dry, shortness of breath, hemoptysis, SOB with excertion, pleuritic pain, sputum, wheezing, other Cardiovascular: denies: chest pain, palpitations, orthopnea, paroxysmal noc. dyspnea, edema, light headedness, other Gastrointestinal: denies: nausea, vomiting, abdominal pain, diarrhea, constipation, melena, hematochezia, other Genitourinary: denies: dysuria, frequency, incontinence, hematuria, retention, other Musculoskeletal: denies: neck pain, shoulder pain, arm pain, back pain, hand pain, leg pain, foot pain, other Skin: denies: rash, lesions, soraya, bruising, other - Medication Medications: Active Medications Generic Name Dose Route Start Last Admin Trade Name Freq PRN Reason Stop Dose Admin Albuterol/Ipratropium 3 ml 08/26/20 01:00 09/01/20 07:22 Ipratropium/Albuterol Sulfate 3 Ml Neb NEB 3 ml [id number] ARI Administration Amlodipine Besylate 5 mg 08/26/20 21:00 09/01/20 09:38 Amlodipine 5 Mg Tab PO 5 mg BID ARI Administration Ascorbic Acid 1,000 mg 08/27/20 09:00 09/01/20 09:39 Ascorbic Acid 500 Mg Chewable Tablet PO Not Given DAILY ARI Bisacodyl 10 mg 08/31/20 21:00 09/01/20 09:39 Bisacodyl 10 Mg Supp [place] Not Given BID [facility] Calcium/Vitamin D 1 tab 08/27/20 09:00 09/01/20 09:38 Calcium Carbonate 600 Mg + Vit D Tab PO 1 tab DAILY ARI Administration Clonidine 0.1 mg 08/27/20 09:41 08/28/20 20:33 Clonidine 0.1 Mg Tab PO 0.1 mg Q4H PRN Administration Blood Pressure Doxycycline Hyclate 100 mg 08/26/20 21:00 09/01/20 09:37 Doxycycline 100 Mg Cap PO 100 mg BID ARI Administration Ezetimibe 10 mg 08/26/20 21:00 08/31/20 20:26 Ezetimibe 10 Mg Tab PO 10 mg HS RAI Administration Enoxaparin Sodium 30 mg 08/26/20 09:00 09/01/20 09:39 Enoxaparin Sodium 30 Mg/0.3 Ml Syringe SC 30 mg 0900 ARI Administration Famotidine 20 mg 08/26/20 09:00 09/01/20 09:39 Famotidine/Pf 20 Mg/2ml Vial SLOW IVP 20 mg DAILY ARI Administration Hydralazine HCl 25 mg 08/28/20 21:00 09/01/20 09:38 Hydralazine 25 Mg Tab PO 25 mg BID ARI Administration Levothyroxine Sodium 50 mcg 08/27/20 06:00 09/01/20 06:01 Levothyroxine Sodium 50 Mcg Tab PO 50 mcg 0600 ARI Administration Melatonin 3 mg 08/26/20 21:00 08/31/20 20:26 Melatonin 3 Mg Tab PO 3 mg HS ARI Administration Mometasone Furoate/Formoterol Fumar 2 puff 08/26/20 18:30 09/01/20 07:19 Mometasone 200 Mcg/Formoterol 5 Mcg 120 Puff Inhaler INH 2 puff BID-RT ARI Administration Multivitamins 1 tab 08/27/20 09:00 09/01/20 09:38 Multivit, Therapeutic 1 Tab PO 1 tab DAILY ARI Administration Pantoprazole Sodium 40 mg 08/27/20 09:00 09/01/20 09:37 Pantoprazole 40 Mg Tab PO 40 mg DAILY ARI Administration Prednisone 20 mg 09/01/20 08:00 09/01/20 09:39 Prednisone 20 Mg Tab PO 20 mg QAM-WM ARI Administration Sodium Chloride 10 ml 08/25/20 21:00 09/01/20 09:40 Flush - Normal Saline 10 Ml Syringe IVF 10 ml Q12HR ARI Administration Sodium Chloride 10 ml 08/25/20 20:55 08/26/20 06:03 Flush - Normal Saline 10 Ml Syringe IVF 10 ml Q12HR PRN Administration Saline Flush - Exam General Appearance: NAD, awake alert Eye: PERRL, anicteric sclera ENT: normocephalic atraumatic, no oropharyngeal lesions Neck: supple, symmetric, no JVD, no thyromegaly Heart: RRR, no murmur, no gallops, no rubs Respiratory: no wheezes, no rales, no ronchi Gastrointestinal: soft, non-tender, non-distended, normal bowel sounds Extremities: no cyanosis, no clubbing Skin: normal turgor, no lesions Neurological: no focal deficits Musculoskeletal: normal tone, normal strength Psychiatric: normal affect, normal behavior Hosp A/P (1) Acute on chronic respiratory failure with hypoxia and hypercapnia Code(s): J96.21 - ACUTE AND CHRONIC RESPIRATORY FAILURE WITH HYPOXIA; J96.22 - ACUTE AND CHRONIC RESPIRATORY FAILURE WITH HYPERCAPNIA Status: Acute (2) COPD exacerbation Code(s): J44.1 - CHRONIC OBSTRUCTIVE PULMONARY DISEASE W (ACUTE) EXACERBATION Status: Acute (3) Elevated troponin Code(s): R77.8 - OTHER SPECIFIED ABNORMALITIES OF PLASMA PROTEINS Status: Acute (4) Spontaneous pneumothorax Code(s): J93.83 - OTHER PNEUMOTHORAX Status: Acute (5) Hyponatremia Code(s): E87.1 - HYPO-OSMOLALITY AND HYPONATREMIA Status: Acute (6) Dyslipidemia Code(s): E78.5 - HYPERLIPIDEMIA, UNSPECIFIED Status: Chronic (7) HTN (hypertension) Code(s): I10 - ESSENTIAL (PRIMARY) HYPERTENSION Status: Chronic (8) Osteoporosis Code(s): M81.0 - AGE-RELATED OSTEOPOROSIS W/O CURRENT PATHOLOGICAL FRACTURE Status: Chronic - Plan old records reviewed/req, PT/OT, child welfare social worker, respiratory therapy Patient has significant clinical improvement, Medication reviewed We will adjust medication while in hospital for blood pressure Patient will need rehab placement Expecting discharge tomorrow
--- NOTE | 2020-09-01 12:20 | PRG ---
DATE OF SERVICE: 09/01/2020 SUBJECTIVE: Libby Ryan is an 84-year-old female, who says she is better. OBJECTIVE: VITAL SIGNS: Temperature 98, pulse 86, saturations are on 2 L, blood pressure /73. CHEST: No wheezing, no crackles. CARDIAC: Normal S1, S2. No gallops. ABDOMEN: No masses. ASSESSMENT: Spontaneous pneumothorax, chronic obstructive pulmonary disease, severe deconditioning, major anxiety. PLAN: She is probably going to be transferred to rehab tomorrow. Continue present treatment, nebs, low-flow O2, steroids. We will follow. Job ID: [id number]
[2020-09-01] MEDS: Melatonin 3 MG TAB PO SCH (21:01)
[2020-09-01] MEDS: Ezetimibe 10 MG TAB PO SCH (21:01)
[2020-09-02] MEDS: Mometasone 200 MCG/Formoterol 5 MCG 120 PUFF INHALER INH SCH (05:12)
[2020-09-02] MEDS: Levothyroxine Sodium 50 MCG TAB PO SCH (05:32)
[2020-09-02] MEDS: Famotidine/PF 20 mg/2ml Vial SLOW IVP SCH (08:12)
[2020-09-02] MEDS: Amlodipine 5 MG TAB PO SCH (08:12)
[2020-09-02] MEDS: hydrALAZINE 25 MG TAB PO SCH (08:12)
[2020-09-02] MEDS: predniSONE 20 MG TAB PO SCH (08:12)
[2020-09-02] MEDS: Calcium Carbonate 600 MG + Vit D TAB PO SCH (08:12)
[2020-09-02] MEDS: Multivit, Therapeutic 1 TAB PO SCH (08:12)
[2020-09-02] MEDS: Bisacodyl 10 MG SUPP PR SCH (08:13)
[2020-09-02] MEDS: Enoxaparin Sodium 30 MG/0.3 ML SYRINGE SC SCH (08:13)
[2020-09-02] MEDS: Ascorbic Acid 500 mg Chewable Tablet PO SCH (08:16)
[2020-09-02] MEDS: Doxycycline 100 MG CAP PO SCH (10:29)
--- NOTE | 2020-09-02 10:53 | PRG ---
DATE OF SERVICE: 09/02/2020 OBJECTIVE: VITAL SIGNS: Temperature 98, blood pressure 130/67, saturations on 2 L, and respiratory rate 18. CHEST: No wheezing. No crackles. CARDIAC: Normal S1 and S2. No gallops. ABDOMEN: No masses. ASSESSMENT AND PLAN: Chronic obstructive pulmonary disease, spontaneous pneumothorax, severe deconditioning, and DNR. She is to be discharged home placement. Continue present treatment, low-flow O2, low-dose steroids, antibiotics, and supportive care. Job ID: [id number]
--- NOTE | 2020-09-02 11:16 | PDOC.HOSPP ---
- Subjective Encounter Date: 09/02/20 Encounter Time: 08:10 Subjective: Patient seen and examined. No new complaints. No overnight events - Objective Vital Signs & Weight: Vital Signs (12 hours) Temp Pulse Resp BP BP Pulse Ox 09/02/20 08:12 97 134/67 09/02/20 07:07 97.8 F 91 18 134/67 93 L 09/02/20 05:11 87 16 98 09/02/20 00:45 89 16 97 Weight Admit Weight 99 lb Weight 99 lb 14.4 oz Most Recent Monitor Data Heart Rate from ECG 96 NIBP 150/80 NIBP BP-Mean 103 Respiration from ECG 20 SpO2 96 I&O: 09/01/20 09/02/20 09/03/20 06:59 06:59 06:59 Intake Total 1140 1260 Output Total 400 200 Balance 740 1060 Result Diagrams: 08/28/20 05:17 08/28/20 05:17 Hospitalist ROS - Review of Systems ENT: denies: ear pain, ear discharge, nose pain, nose discharge, nose congestion, mouth pain, mouth swelling, throat pain, throat swelling, other Respiratory: denies: cough, dry, shortness of breath, hemoptysis, SOB with excertion, pleuritic pain, sputum, wheezing, other Cardiovascular: denies: chest pain, palpitations, orthopnea, paroxysmal noc. dyspnea, edema, light headedness, other Gastrointestinal: denies: nausea, vomiting, abdominal pain, diarrhea, constipation, melena, hematochezia, other Genitourinary: denies: dysuria, frequency, incontinence, hematuria, retention, other Musculoskeletal: denies: neck pain, shoulder pain, arm pain, back pain, hand pain, leg pain, foot pain, other - Medication Medications: Active Medications Generic Name Dose Route Start Last Admin Trade Name Freq PRN Reason Stop Dose Admin Albuterol/Ipratropium 3 ml 08/26/20 01:00 09/02/20 05:11 Ipratropium/Albuterol Sulfate 3 Ml Neb NEB 3 ml [id number] ARI Administration Amlodipine Besylate 5 mg 08/26/20 21:00 09/02/20 08:12 Amlodipine 5 Mg Tab PO 5 mg BID ARI Administration Ascorbic Acid 1,000 mg 08/27/20 09:00 10/12/20 08:16 Ascorbic Acid 500 Mg Chewable Tablet PO Not Given DAILY ARI Bisacodyl 10 mg 08/31/20 21:00 09/02/20 08:13 Bisacodyl 10 Mg Supp [place] Not Given BID [facility] Calcium/Vitamin D 1 tab 08/27/20 09:00 09/02/20 08:12 Calcium Carbonate 600 Mg + Vit D Tab PO 1 tab DAILY ARI Administration Clonidine 0.1 mg 08/27/20 09:41 08/28/20 20:33 Clonidine 0.1 Mg Tab PO 0.1 mg Q4H PRN Administration Blood Pressure Doxycycline Hyclate 100 mg 08/26/20 21:00 09/02/20 10:29 Doxycycline 100 Mg Cap PO 100 mg BID ARI Administration Ezetimibe 10 mg 08/26/20 21:00 09/01/20 21:01 Ezetimibe 10 Mg Tab PO 10 mg HS ARI Administration Enoxaparin Sodium 30 mg 08/26/20 09:00 09/02/20 08:13 Enoxaparin Sodium 30 Mg/0.3 Ml Syringe SC 30 mg 0900 ARI Administration Famotidine 20 mg 08/26/20 09:00 09/02/20 08:12 Famotidine/Pf 20 Mg/2ml Vial SLOW IVP 20 mg DAILY ARI Administration Hydralazine HCl 25 mg 08/28/20 21:00 09/02/20 08:12 Hydralazine 25 Mg Tab PO 25 mg BID ARI Administration Levothyroxine Sodium 50 mcg 08/27/20 06:00 09/02/20 05:32 Levothyroxine Sodium 50 Mcg Tab PO 50 mcg 0600 ARI Administration Melatonin 3 mg 08/26/20 21:00 09/01/20 21:01 Melatonin 3 Mg Tab PO 3 mg HS ARI Administration Mometasone Furoate/Formoterol Fumar 2 puff 08/26/20 18:30 09/02/20 05:12 Mometasone 200 Mcg/Formoterol 5 Mcg 120 Puff Inhaler INH 2 puff BID-RT ARI Administration Multivitamins 1 tab 08/27/20 09:00 09/02/20 08:12 Multivit, Therapeutic 1 Tab PO 1 tab DAILY ARI Administration Pantoprazole Sodium 40 mg 08/27/20 09:00 09/02/20 08:12 Pantoprazole 40 Mg Tab PO 40 mg DAILY ARI Administration Prednisone 20 mg 09/01/20 08:00 09/02/20 08:12 Prednisone 20 Mg Tab PO 20 mg QAM-WM ARI Administration Sodium Chloride 10 ml 08/25/20 21:00 09/02/20 08:13 Flush - Normal Saline 10 Ml Syringe IVF 10 ml Q12HR ARI Administration Sodium Chloride 10 ml 08/25/20 20:55 08/26/20 06:03 Flush - Normal Saline 10 Ml Syringe IVF 10 ml Q12HR PRN Administration Saline Flush - Exam General Appearance: NAD, awake alert Eye: PERRL, anicteric sclera ENT: normocephalic atraumatic, no oropharyngeal lesions Neck: supple, symmetric, no JVD, no thyromegaly Heart: RRR, no murmur, no gallops, no rubs Respiratory: CTAB, no wheezes, no rales, no ronchi Gastrointestinal: soft, non-tender, non-distended, normal bowel sounds Extremities: no cyanosis, no clubbing, no edema Skin: normal turgor Neurological: no focal deficits Musculoskeletal: normal tone, normal strength Psychiatric: normal affect, normal behavior Hosp A/P (1) Acute on chronic respiratory failure with hypoxia and hypercapnia Code(s): J96.21 - ACUTE AND CHRONIC RESPIRATORY FAILURE WITH HYPOXIA; J96.22 - ACUTE AND CHRONIC RESPIRATORY FAILURE WITH HYPERCAPNIA Status: Acute (2) COPD exacerbation Code(s): J44.1 - CHRONIC OBSTRUCTIVE PULMONARY DISEASE W (ACUTE) EXACERBATION Status: Acute (3) Elevated troponin Code(s): R77.8 - OTHER SPECIFIED ABNORMALITIES OF PLASMA PROTEINS Status: Acute (4) Spontaneous pneumothorax Code(s): J93.83 - OTHER PNEUMOTHORAX Status: Acute (5) Hyponatremia Code(s): E87.1 - HYPO-OSMOLALITY AND HYPONATREMIA Status: Acute (6) Dyslipidemia Code(s): E78.5 - HYPERLIPIDEMIA, UNSPECIFIED Status: Chronic (7) HTN (hypertension) Code(s): I10 - ESSENTIAL (PRIMARY) HYPERTENSION Status: Chronic (8) Osteoporosis Code(s): M81.0 - AGE-RELATED OSTEOPOROSIS W/O CURRENT PATHOLOGICAL FRACTURE St atus: Chronic - Plan old records reviewed/req, plan discussed w/ family, continue antibiotics, PT/OT, psychotherapist social worker Patient has significant clinical improvement, Medication reviewed Updated plan of care to patient's son Patient is approved for rehab We will discharge her today
[2020-09-02 11:58] VITALS: BP 124/71; TEMP 97.9
--- NOTE | 2020-09-03 11:02 | DIS ---
DATE OF ADMISSION: 08/25/2020 DATE OF DISCHARGE: 09/02/2020 PRIMARY CARE PHYSICIAN: [facility] Call admission. DISCHARGE DISPOSITION: Rehab. PRIMARY DISCHARGE DIAGNOSES: Acute on chronic respiratory failure with hypoxia and hypercapnia, chronic obstructive pulmonary disease exacerbation, type 2 myocardial infarction, spontaneous pneumothorax, hyponatremia. DISCHARGE PLAN: Post hospital, the patient is discharged to inpatient rehabilitation and subsequently, the patient will follow up with primary care physician. DISCHARGE MEDICATIONS: 1. ProAir HFA two puffs q.4 hourly. 2. Breo Ellipta inhalation daily. 3. Calcium with vitamin D 1 tablet p.o. daily. 4. Synthroid 50 mcg p.o. daily. 5. Omeprazole 40 mg p.o. daily. 6. Spiriva 18 mcg inhalation daily. 7. Vitamin C 1 g p.o. daily. 8. Zetia 10 mg p.o. at bedtime. 9. Amlodipine 5 mg p.o. daily. 10. MiraLAX 17 g p.o. daily. 11. Melatonin 3 mg p.o. at bedtime. 12. Losartan 50 mg twice daily. CONTRAINDICATION: None. CODE STATUS: DNR. INPATIENT GAS TURBINE POWERPLANT MECHANIC: Dr. Page was following while in hospital. TEST RESULTS PENDING ON DISCHARGE: None. ALLERGIES: INCLUDE BUDESONIDE, CEPHALEXIN. HOSPITAL COURSE: 84-year-old female, who has COPD and respiratory failure on home oxygen, who was admitted for COPD exacerbation. The patient was admitted on August 25, 2020. On admission, the patient also had hypercapnia and hypoxia. She was requiring oxygen more than her normal use. She was admitted in the hospital and she was treated optimally for COPD flare up. Initially, CT angiography negative for PE. The patient also had a spontaneous pneumothorax that was resolved. Echocardiography showed normal EF and diastolic dysfunction. The patient has physical deconditioning and that is why she was requiring rehabilitation and with help of upper caser, rehab was arranged. The patient is overall medically stable for discharge today. Job ID: [id number]
[2020-09-04] MEDS ORDERED: cloNIDine 0.2mg/24 Hour PATCH TD SCH (09:00)
== END 2020-09-02 13:42 | DRG 199 ==
LOC: ERS 17:21 → IMCU/EMU 22:42 → T4-A 08-27 16:49
PROVIDERS: ADMIT Internal Medicine; ATTEND Internal Medicine
DX: J93.83 Other pneumothorax (principal); J96.21 Acute and chronic respiratory failure with hypoxia; J96.22 Acute and chronic respiratory failure with hypercapnia; I21.A1 Myocardial infarction type 2; J44.1 Chronic obstructive pulmonary disease with (acute) exacerbation; R64 Cachexia; Z68.1 Body mass index [BMI] 19.9 or less, adult; E44.0 Moderate protein-calorie malnutrition; E87.1 Hypo-osmolality and hyponatremia; J90 Pleural effusion, not elsewhere classified; Z66 Do not resuscitate; R53.81 Other malaise; F32.9 Major depressive disorder, single episode, unspecified; E78.5 Hyperlipidemia, unspecified; K21.9 Gastro-esophageal reflux disease without esophagitis; E03.9 Hypothyroidism, unspecified; M81.0 Age-related osteoporosis without current pathological fracture; Z20.828 Contact with and (suspected) exposure to other viral communicable diseases; F41.9 Anxiety disorder, unspecified; I10 Essential (primary) hypertension; K59.00 Constipation, unspecified; Z87.891 Personal history of nicotine dependence; Z90.710 Acquired absence of both cervix and uterus; Z88.8 Allergy status to other drugs, medicaments and biological substances; Z88.1 Allergy status to other antibiotic agents; Z98.890 Other specified postprocedural states; Z79.899 Other long term (current) drug therapy; Z99.81 Dependence on supplemental oxygen; Z79.51 Long term (current) use of inhaled steroids
CPT/HCPCS: 36415; 51701; 71045; 71250; 71275; 80048; 80053; 82553; 82805; 83605; 83880; 84443; 84484; 85007; 85025; 85027; 87040; 90471; 90662; 93005; 93306; 94640; 96365; 96366; 96367; G0008; J0456; J0696; J1650; J2920; J3370; J3490; J7050; J7512; J7620; S0028; U0002

== ENCOUNTER 2021-03-15 15:53 | Inpatient (IN) | payer MEDICARE, BC ==
[2021-03-15] MEDS ORDERED: Albuterol 200 PUFF (6.7GM INHALER) ONE (16:12)
[2021-03-15] MEDS ORDERED: Magnesium 2 GM/50 ML BAG (IN WATER) ONE (16:30)
[2021-03-15 16:39] LABS: #Neutrophils 12.5 thou/uL (1.40-6.50); %Basophils 0.1 % (0.0-1.0); %Eosinophils 0.1 % (0.0-10.0); %Lymphocytes 12.7 % (21.0-51.0); %Monocytes 6.6 % (0.0-10.0); %Neutrophils 80.5 % (42.0-75.0); Hemoglobin 13.3 g/dL (12.0-16.0); Mean Corpuscular HGB CONC 32.1 g/dL (32.0-36.0); Mean Corpuscular Hemoglobin 30.3 pg (27.0-31.0); Mean Corpuscular Volume 94.2 fL (78.0-98.0); Mean Platelet Volume 7.3 fL (7.4-10.4); Platelet Count 354 thou/uL (130-400); RBC Distribution Width 14.7 % (11.5-14.5); Red Blood Cell (RBC) Count 4.41 mill/uL (4.20-5.40); White Blood Cell (WBC) Count 15.6 thou/uL (4.8-10.8)
[2021-03-15 16:41] LABS: Actual Bicarbonate (HCO3v) 29 mEq/L (22-28); pH (venous) 7.24 (7.32-7.43)
[2021-03-15 16:42] LABS: Base Excess -0.5 mEq/L (-2.0 to +3.0); Hemoglobin (Hb) 13.8 g/dL (11.7-16.1); Sodium 135.1 mmol/L (133-146)
[2021-03-15 16:43] LABS: Analyzer IN Cardio ER; Calcium, Ionized (venous) 1.18 mmol/L (1.16-1.32); Chloride (VBG) 95 mmol/L (98-106); Potassium (VBG) 4.22 mmol/L (3.70-5.30)
[2021-03-15 17:04] LABS: ALT (SGPT) 44 U/L (8-55); AST (SGOT) 52 U/L (5-34); Albumin 4.2 g/dL (3.4-4.8); Alkaline Phosphatase 69 U/L (40-110); Anion Gap 19 mmol/L (10-20); BUN (Urea Nitrogen) 15 mg/dL (9.8-20.1); Bilirubin, Total 0.3 mg/dL (0.2-1.2); Calc. Creatinine Clearance 0 mL/min (70-130); Calcium 9.3 mg/dL (7.8-10.44); Carbon Dioxide 26 mmol/L (23-31); Chloride 96 mmol/L (98-107); Glucose 159 mg/dL (83-110); Potassium 4.7 mmol/L (3.5-5.1); Protein, Total 7.2 g/dL (5.8-8.1); Sodium 136 mmol/L (136-145)
[2021-03-15 17:30] LABS: CKMB 9.8 ng/mL (0-6.6)
[2021-03-15 17:57] LABS: SARS-CoV-2 NAA Rapid Test Not Detected (NotDetected)
[2021-03-15] MEDS ORDERED: Ondansetron ODT 4 MG TAB PO PRN (19:56)
[2021-03-15] MEDS ORDERED: Acetaminophen 325 MG TAB PO PRN (19:56)
[2021-03-15] MEDS ORDERED: Ondansetron PF 4 MG/2 ML Vial IVP PRN (19:56)
[2021-03-15] MEDS ORDERED: Aspirin Chewable 81 MG TAB ONE (20:35)
[2021-03-15] MEDS ORDERED: methylPREDNISolone Sod Succ 40 MG VIAL IVP SCH (21:00)
[2021-03-15] MEDS ORDERED: Azithromycin 500 MG in Sodium Chloride 0.9% 250 ML 250 ML IVPB SCH (21:00)
[2021-03-15] MEDS ORDERED: Lorazepam 2 MG/ML VIAL ONE (21:05)
[2021-03-15 21:39] LABS: Troponin I 0.388 ng/mL (< 0.028)
[2021-03-15] MEDS ORDERED: Enoxaparin Sodium 60 MG/0.6 ML SYRINGE SC SCH (22:15)
[2021-03-16] MEDS ORDERED: Labetalol HCl 100 MG/20 ML VIAL SLOW IVP PRN (02:04)
[2021-03-16] MEDS ORDERED: hydrALAZINE 20 MG/ML VIAL SLOW IVP PRN (02:04)
[2021-03-16] MEDS: Azithromycin 500 MG in Sodium Chloride 0.9% 250 ML 250 ML IVPB SCH (03:09)
[2021-03-16 04:50] LABS: #Lymphocytes 0.8 thou/uL (1.20-3.40); #Monocytes 0.7 thou/uL (0.11-0.59); #Neutrophils 8.2 thou/uL (1.40-6.50); %Basophils 0.1 % (0.0-1.0); %Eosinophils 0.2 % (0.0-10.0); %Lymphocytes 8.2 % (21.0-51.0); %Monocytes 7.4 % (0.0-10.0); %Neutrophils 84.1 % (42.0-75.0); Hemoglobin 12.5 g/dL (12.0-16.0); Mean Corpuscular HGB CONC 31.4 g/dL (32.0-36.0); Mean Corpuscular Hemoglobin 29.3 pg (27.0-31.0); Mean Corpuscular Volume 93.3 fL (78.0-98.0); Mean Platelet Volume 7.1 fL (7.4-10.4); Platelet Count 300 thou/uL (130-400); RBC Distribution Width 14.5 % (11.5-14.5); Red Blood Cell (RBC) Count 4.25 mill/uL (4.20-5.40); White Blood Cell (WBC) Count 9.8 thou/uL (4.8-10.8)
[2021-03-16 05:07] LABS: Anion Gap 15 mmol/L (10-20); BUN (Urea Nitrogen) 16 mg/dL (9.8-20.1); Calc. Creatinine Clearance 38 mL/min (70-130); Carbon Dioxide 28 mmol/L (23-31); Chloride 94 mmol/L (98-107); Glucose 135 mg/dL (83-110); Potassium 4.6 mmol/L (3.5-5.1); Sodium 132 mmol/L (136-145)
[2021-03-16] MEDS ORDERED: Budesonide 0.5 MG/2 ML NEB ONE (08:10)
[2021-03-16] MEDS ORDERED: Arformoterol 15 MCG/2 ML NEB NEB SCH (08:11)
[2021-03-16] MEDS ORDERED: Enoxaparin Sodium 40 MG/0.4 ML SYRINGE SC SCH (09:00)
[2021-03-16] MEDS ORDERED: Enoxaparin Sodium 60 MG/0.6 ML SYRINGE SC SCH ×2 (09:00→21:00)
[2021-03-16] MEDS ORDERED: Aspirin 81 mg Enteric Coated Tablet ONE (09:23)
[2021-03-16] MEDS: Aspirin 81 mg Enteric Coated Tablet PO SCH (09:33)
[2021-03-16] MEDS: Sodium Chloride 0.9% 1,000 ML IV SCH (09:33)
[2021-03-16] MEDS: Enoxaparin Sodium 40 MG/0.4 ML SYRINGE SC SCH (09:33)
[2021-03-16] MEDS: methylPREDNISolone Sod Succ 40 MG VIAL IVP SCH ×2 (12:53→17:56)
[2021-03-16] MEDS: ALPRAZolam 0.25 MG TAB PO PRN (14:49)
[2021-03-16] MEDS ORDERED: Budesonide 0.5 MG/2 ML NEB INH SCH (18:30)
[2021-03-17] MEDS: Sodium Chloride 0.9% 1,000 ML IV SCH ×2 (00:13→12:40)
[2021-03-17] MEDS: methylPREDNISolone Sod Succ 40 MG VIAL IVP SCH ×4 (00:33→18:46)
[2021-03-17] MEDS ORDERED: predniSONE 5 MG TAB ONE (02:06)
[2021-03-17] MEDS: Azithromycin 500 MG in Sodium Chloride 0.9% 250 ML 250 ML IVPB SCH (02:47)
[2021-03-17] MEDS: Levothyroxine Sodium 50 MCG TAB PO SCH (05:36)
[2021-03-17 08:31] LABS: #Lymphocytes 0.6 thou/uL (1.20-3.40); #Monocytes 0.2 thou/uL (0.11-0.59); #Neutrophils 8.7 thou/uL (1.40-6.50); %Basophils 0.1 % (0.0-1.0); %Lymphocytes 5.8 % (21.0-51.0); %Monocytes 2.3 % (0.0-10.0); %Neutrophils 91.8 % (42.0-75.0); Hemoglobin 13.5 g/dL (12.0-16.0); Mean Corpuscular HGB CONC 31.1 g/dL (32.0-36.0); Mean Corpuscular Hemoglobin 28.9 pg (27.0-31.0); Mean Corpuscular Volume 92.9 fL (78.0-98.0); Mean Platelet Volume 7.2 fL (7.4-10.4); Platelet Count 306 thou/uL (130-400); RBC Distribution Width 14.4 % (11.5-14.5); Red Blood Cell (RBC) Count 4.69 mill/uL (4.20-5.40); White Blood Cell (WBC) Count 9.5 thou/uL (4.8-10.8)
[2021-03-17] MEDS ORDERED: Polyethylene Glycol 3350 17 GM Packet PO PRN (08:52)
[2021-03-17] MEDS: Aspirin 81 mg Enteric Coated Tablet PO SCH (09:40)
[2021-03-17] MEDS: Losartan 25 MG TAB PO SCH ×2 (09:40→20:57)
[2021-03-17] MEDS: Enoxaparin Sodium 40 MG/0.4 ML SYRINGE SC SCH (09:40)
[2021-03-17] MEDS: Amlodipine 10 MG TAB PO SCH (09:41)
[2021-03-17] MEDS: Multivit, Therapeutic 1 TAB PO SCH (09:41)
[2021-03-17] MEDS: guaiFENesin ER 600 MG TAB PO SCH ×2 (09:43→20:57)
[2021-03-17 12:32] LABS: Calcium 8.8 mg/dL (7.8-10.44); Carbon Dioxide 26 mmol/L (23-31); Glucose 129 mg/dL (83-110)
[2021-03-17 12:33] LABS: BUN (Urea Nitrogen) 18 mg/dL (9.8-20.1); Calc. Creatinine Clearance 40 mL/min (70-130)
[2021-03-17] MEDS: ALPRAZolam 0.25 MG TAB PO PRN (12:34)
[2021-03-17 12:48] LABS: Anion Gap 14 mmol/L (10-20); Chloride 98 mmol/L (98-107); Potassium 4.9 mmol/L (3.5-5.1); Sodium 133 mmol/L (136-145)
[2021-03-17] MEDS: Mometasone 200 MCG/Formoterol 5 MCG 120 PUFF INHALER INH SCH (18:49)
[2021-03-17] MEDS: Melatonin 3 MG TAB PO SCH (20:57)
[2021-03-17] MEDS: Ezetimibe 10 MG TAB PO SCH (20:57)
[2021-03-17] MEDS ORDERED: Enoxaparin Sodium 40 MG/0.4 ML SYRINGE SC SCH (21:00)
[2021-03-18] MEDS: Sodium Chloride 0.9% 1,000 ML IV SCH (00:12)
[2021-03-18] MEDS: methylPREDNISolone Sod Succ 40 MG VIAL IVP SCH ×2 (00:12→05:59)
[2021-03-18] MEDS: Azithromycin 500 MG in Sodium Chloride 0.9% 250 ML 250 ML IVPB SCH (02:48)
[2021-03-18 05:45] LABS: Anion Gap 11 mmol/L (10-20); BUN (Urea Nitrogen) 21 mg/dL (9.8-20.1); Calc. Creatinine Clearance 37 mL/min (70-130); Calcium 8.3 mg/dL (7.8-10.44); Carbon Dioxide 27 mmol/L (23-31); Chloride 101 mmol/L (98-107); Glucose 209 mg/dL (83-110); Potassium 4.2 mmol/L (3.5-5.1); Sodium 135 mmol/L (136-145)
[2021-03-18 05:55] LABS: Band 1 % (5-11); Hemoglobin 11.4 g/dL (12.0-16.0); Lymphocytes 2 % (21-51); MDiff Complete? YES; Mean Corpuscular HGB CONC 31.9 g/dL (32.0-36.0); Mean Corpuscular Hemoglobin 29.7 pg (27.0-31.0); Mean Corpuscular Volume 93.4 fL (78.0-98.0); Mean Platelet Volume 7.1 fL (7.4-10.4); Monocytes 4 % (0-10); Neutrophil 93 % (42-75); Platelet Count 265 thou/uL (130-400); RBC Distribution Width 14.6 % (11.5-14.5); Red Blood Cell (RBC) Count 3.84 mill/uL (4.20-5.40)
[2021-03-18] MEDS: Levothyroxine Sodium 50 MCG TAB PO SCH (05:59)
[2021-03-18] MEDS: Mometasone 200 MCG/Formoterol 5 MCG 120 PUFF INHALER INH SCH ×2 (06:50→18:52)
[2021-03-18] MEDS ORDERED: hydrALAZINE 25 MG TAB PO PRN (09:31)
[2021-03-18] MEDS: Enoxaparin Sodium 40 MG/0.4 ML SYRINGE SC SCH (09:49)
[2021-03-18] MEDS: Amlodipine 10 MG TAB PO SCH (09:50)
[2021-03-18] MEDS: Multivit, Therapeutic 1 TAB PO SCH (09:50)
[2021-03-18] MEDS: Losartan 25 MG TAB PO SCH ×2 (09:50→20:55)
[2021-03-18] MEDS: Aspirin 81 mg Enteric Coated Tablet PO SCH (09:50)
[2021-03-18] MEDS: guaiFENesin ER 600 MG TAB PO SCH ×2 (09:50→20:55)
[2021-03-18] MEDS ORDERED: methylPREDNISolone Sod Succ 40 MG VIAL ONE (13:02)
[2021-03-18] MEDS: Melatonin 3 MG TAB PO SCH (20:55)
[2021-03-18] MEDS: Ezetimibe 10 MG TAB PO SCH (20:56)
[2021-03-18] MEDS: ALPRAZolam 0.25 MG TAB PO PRN (20:58)
[2021-03-19] MEDS: Levothyroxine Sodium 50 MCG TAB PO SCH (05:52)
[2021-03-19] MEDS: Mometasone 200 MCG/Formoterol 5 MCG 120 PUFF INHALER INH SCH ×2 (07:31→19:13)
[2021-03-19] MEDS: Aspirin 81 mg Enteric Coated Tablet PO SCH (08:50)
[2021-03-19] MEDS: Losartan 25 MG TAB PO SCH ×2 (08:50→21:06)
[2021-03-19] MEDS: Azithromycin 250 MG TAB PO SCH (08:51)
[2021-03-19] MEDS: Multivit, Therapeutic 1 TAB PO SCH (08:51)
[2021-03-19] MEDS: Amlodipine 10 MG TAB PO SCH (08:51)
[2021-03-19] MEDS: guaiFENesin ER 600 MG TAB PO SCH ×2 (08:51→21:06)
[2021-03-19] MEDS: predniSONE 20 MG TAB PO SCH (08:51)
[2021-03-19] MEDS: Enoxaparin Sodium 40 MG/0.4 ML SYRINGE SC SCH (08:52)
[2021-03-19] MEDS: Ezetimibe 10 MG TAB PO SCH (21:06)
[2021-03-19] MEDS: Melatonin 3 MG TAB PO SCH (21:06)
[2021-03-19] MEDS: ALPRAZolam 0.25 MG TAB PO PRN (21:09)
[2021-03-20 03:46] LABS: #Lymphocytes 0.8 thou/uL (1.20-3.40); #Monocytes 0.7 thou/uL (0.11-0.59); #Neutrophils 7.5 thou/uL (1.40-6.50); %Eosinophils 0.1 % (0.0-10.0); %Lymphocytes 9.2 % (21.0-51.0); %Neutrophils 82.7 % (42.0-75.0); Hemoglobin 11.7 g/dL (12.0-16.0); Mean Corpuscular HGB CONC 32.3 g/dL (32.0-36.0); Mean Corpuscular Hemoglobin 30.5 pg (27.0-31.0); Mean Corpuscular Volume 94.2 fL (78.0-98.0); Mean Platelet Volume 7.2 fL (7.4-10.4); Platelet Count 266 thou/uL (130-400); RBC Distribution Width 14.6 % (11.5-14.5); Red Blood Cell (RBC) Count 3.83 mill/uL (4.20-5.40); White Blood Cell (WBC) Count 9.1 thou/uL (4.8-10.8)
[2021-03-20 04:10] LABS: Anion Gap 12 mmol/L (10-20); BUN (Urea Nitrogen) 26 mg/dL (9.8-20.1); Calc. Creatinine Clearance 42 mL/min (70-130); Calcium 8.1 mg/dL (7.8-10.44); Carbon Dioxide 31 mmol/L (23-31); Chloride 99 mmol/L (98-107); Glucose 138 mg/dL (83-110); Potassium 4.5 mmol/L (3.5-5.1); Sodium 137 mmol/L (136-145)
[2021-03-20] MEDS: Levothyroxine Sodium 50 MCG TAB PO SCH (05:29)
[2021-03-20] MEDS: Mometasone 200 MCG/Formoterol 5 MCG 120 PUFF INHALER INH SCH ×2 (07:53→18:52)
[2021-03-20] MEDS: Azithromycin 250 MG TAB PO SCH (08:35)
[2021-03-20] MEDS: Multivit, Therapeutic 1 TAB PO SCH (08:35)
[2021-03-20] MEDS: Enoxaparin Sodium 40 MG/0.4 ML SYRINGE SC SCH (08:35)
[2021-03-20] MEDS: Aspirin 81 mg Enteric Coated Tablet PO SCH (08:36)
[2021-03-20] MEDS: predniSONE 20 MG TAB PO SCH (08:36)
[2021-03-20] MEDS: Amlodipine 10 MG TAB PO SCH (08:36)
[2021-03-20] MEDS: Losartan 25 MG TAB PO SCH ×2 (08:36→21:04)
[2021-03-20] MEDS: guaiFENesin ER 600 MG TAB PO SCH ×2 (08:36→21:04)
[2021-03-20] MEDS: Ezetimibe 10 MG TAB PO SCH (21:03)
[2021-03-20] MEDS: ALPRAZolam 0.25 MG TAB PO PRN (21:03)
[2021-03-20] MEDS: Melatonin 3 MG TAB PO SCH (21:04)
[2021-03-21 04:19] LABS: BUN (Urea Nitrogen) 23 mg/dL (9.8-20.1); Calc. Creatinine Clearance 42 mL/min (70-130); Calcium 8.5 mg/dL (7.8-10.44); Glucose 101 mg/dL (83-110)
[2021-03-21 04:28] LABS: Anion Gap 14 mmol/L (10-20); Carbon Dioxide 33 mmol/L (23-31); Chloride 95 mmol/L (98-107); Potassium 4.1 mmol/L (3.5-5.1); Sodium 138 mmol/L (136-145)
[2021-03-21] MEDS: Levothyroxine Sodium 50 MCG TAB PO SCH (05:51)
[2021-03-21] MEDS: Mometasone 200 MCG/Formoterol 5 MCG 120 PUFF INHALER INH SCH ×2 (07:46→19:09)
[2021-03-21] MEDS: Azithromycin 250 MG TAB PO SCH (08:49)
[2021-03-21] MEDS: predniSONE 20 MG TAB PO SCH (08:49)
[2021-03-21] MEDS: Multivit, Therapeutic 1 TAB PO SCH (08:49)
[2021-03-21] MEDS: Losartan 25 MG TAB PO SCH ×2 (08:49→21:00)
[2021-03-21] MEDS: guaiFENesin ER 600 MG TAB PO SCH ×2 (08:49→21:00)
[2021-03-21] MEDS: Aspirin 81 mg Enteric Coated Tablet PO SCH (08:50)
[2021-03-21] MEDS: Amlodipine 10 MG TAB PO SCH (08:50)
[2021-03-21] MEDS: Enoxaparin Sodium 40 MG/0.4 ML SYRINGE SC SCH (08:50)
[2021-03-21] MEDS: Ezetimibe 10 MG TAB PO SCH (21:00)
[2021-03-21] MEDS: ALPRAZolam 0.25 MG TAB PO PRN (21:01)
[2021-03-21] MEDS: Melatonin 3 MG TAB PO SCH (21:01)
[2021-03-22] MEDS: Levothyroxine Sodium 50 MCG TAB PO SCH (05:56)
[2021-03-22] MEDS: Mometasone 200 MCG/Formoterol 5 MCG 120 PUFF INHALER INH SCH ×2 (06:54→19:08)
[2021-03-22] MEDS: predniSONE 20 MG TAB PO SCH (08:25)
[2021-03-22] MEDS: Enoxaparin Sodium 40 MG/0.4 ML SYRINGE SC SCH (08:26)
[2021-03-22] MEDS: Amlodipine 10 MG TAB PO SCH (09:18)
[2021-03-22] MEDS: Azithromycin 250 MG TAB PO SCH (09:18)
[2021-03-22] MEDS: Multivit, Therapeutic 1 TAB PO SCH (09:18)
[2021-03-22] MEDS: Aspirin 81 mg Enteric Coated Tablet PO SCH (09:18)
[2021-03-22] MEDS: Losartan 25 MG TAB PO SCH ×2 (09:18→20:27)
[2021-03-22] MEDS: guaiFENesin ER 600 MG TAB PO SCH ×2 (09:18→20:27)
[2021-03-22] MEDS: Ezetimibe 10 MG TAB PO SCH (20:27)
[2021-03-22] MEDS: ALPRAZolam 0.25 MG TAB PO PRN (20:28)
[2021-03-22] MEDS: Melatonin 3 MG TAB PO SCH (20:28)
[2021-03-23] MEDS: Levothyroxine Sodium 50 MCG TAB PO SCH (06:15)
[2021-03-23] MEDS: Mometasone 200 MCG/Formoterol 5 MCG 120 PUFF INHALER INH SCH ×2 (07:00→18:30)
[2021-03-23] MEDS: Amlodipine 10 MG TAB PO SCH (08:43)
[2021-03-23] MEDS: guaiFENesin ER 600 MG TAB PO SCH ×2 (08:43→20:17)
[2021-03-23] MEDS: Multivit, Therapeutic 1 TAB PO SCH (08:43)
[2021-03-23] MEDS: Losartan 25 MG TAB PO SCH ×2 (08:43→20:17)
[2021-03-23] MEDS: Aspirin 81 mg Enteric Coated Tablet PO SCH (08:43)
[2021-03-23] MEDS: predniSONE 20 MG TAB PO SCH (08:43)
[2021-03-23] MEDS: Enoxaparin Sodium 40 MG/0.4 ML SYRINGE SC SCH (08:43)
[2021-03-23] MEDS: Azithromycin 250 MG TAB PO SCH (08:43)
[2021-03-23] MEDS: Nystatin 500,000 UNITS/5 ML UDCUP SSW SCH ×2 (17:34→20:16)
[2021-03-23] MEDS ORDERED: Fluconazole 100 MG TAB PO SCH (18:00)
[2021-03-23] MEDS: Ezetimibe 10 MG TAB PO SCH (20:16)
[2021-03-23] MEDS: Melatonin 3 MG TAB PO SCH (20:17)
[2021-03-23] MEDS: ALPRAZolam 0.25 MG TAB PO PRN (20:22)
[2021-03-24] MEDS: Levothyroxine Sodium 50 MCG TAB PO SCH (06:12)
[2021-03-24] MEDS: Mometasone 200 MCG/Formoterol 5 MCG 120 PUFF INHALER INH SCH (07:04)
[2021-03-24] MEDS: Multivit, Therapeutic 1 TAB PO SCH (08:41)
[2021-03-24] MEDS: Losartan 25 MG TAB PO SCH (08:41)
[2021-03-24] MEDS: Enoxaparin Sodium 40 MG/0.4 ML SYRINGE SC SCH (08:41)
[2021-03-24] MEDS: guaiFENesin ER 600 MG TAB PO SCH (08:41)
[2021-03-24] MEDS: Aspirin 81 mg Enteric Coated Tablet PO SCH (08:41)
[2021-03-24] MEDS: Nystatin 500,000 UNITS/5 ML UDCUP SSW SCH ×2 (08:41→13:25)
[2021-03-24] MEDS: predniSONE 20 MG TAB PO SCH (08:41)
[2021-03-24] MEDS: Amlodipine 10 MG TAB PO SCH (08:41)
[2021-03-24 12:17] VITALS: BMI 21.0
[2021-03-24 13:53] VITALS: BP 137/69; TEMP 98.1
== END 2021-03-24 14:52 | DRG 189 ==
LOC: ERS 15:53 → 2NO 19:41 → IMCU/EMU 03-16 08:39 → T4-B 03-21 19:01
PROVIDERS: ADMIT Student in an Organized Health Care Education/Training Program; ATTEND Internal Medicine
PROC: 5A09357 Assistance with Respiratory Ventilation, Less than 24 Consecutive Hours, Continuous Positive Airway Pressure (ICD-10-PCS; principal; 2021-03-16)
DX: J96.21 Acute and chronic respiratory failure with hypoxia (principal); I21.A1 Myocardial infarction type 2; J44.1 Chronic obstructive pulmonary disease with (acute) exacerbation; J93.81 Chronic pneumothorax; B37.0 Candidal stomatitis; E87.1 Hypo-osmolality and hyponatremia; Z20.822 Contact with and (suspected) exposure to COVID-19; Z66 Do not resuscitate; J96.22 Acute and chronic respiratory failure with hypercapnia; I10 Essential (primary) hypertension; E78.5 Hyperlipidemia, unspecified; E55.9 Vitamin D deficiency, unspecified; K59.09 Other constipation; E78.00 Pure hypercholesterolemia, unspecified; M81.0 Age-related osteoporosis without current pathological fracture; E03.9 Hypothyroidism, unspecified; I70.8 Atherosclerosis of other arteries; K21.9 Gastro-esophageal reflux disease without esophagitis; F41.8 Other specified anxiety disorders; Z98.49 Cataract extraction status, unspecified eye; Z90.710 Acquired absence of both cervix and uterus; Z88.1 Allergy status to other antibiotic agents; Z88.8 Allergy status to other drugs, medicaments and biological substances; Z87.891 Personal history of nicotine dependence; Z99.81 Dependence on supplemental oxygen; Z79.899 Other long term (current) drug therapy; Z79.890 Hormone replacement therapy; Z79.51 Long term (current) use of inhaled steroids; Z99.89 Dependence on other enabling machines and devices; Z98.890 Other specified postprocedural states
CPT/HCPCS: 0240U; 36415; 71045; 80048; 80053; 82553; 82805; 83605; 84484; 85025; 93005; 94640; 94660; 96365; 96375; J0456; J1650; J2060; J2920; J3475; J7050; J7512; J7620; J7626